=== PATIENT | male | born 1950 | race Caucasian/White ===

== ENCOUNTER 2017-06-19 23:47 | Emergency (ER) | payer MEDICARE ==
[~2017-06-19] VITALS: Ht 170.2 cm; Wt 94.3 kg
[~2017-06-19 23:47] MED LIST: ALBUTEROL2.5 MG/3 M INH; DILTIAZEM HCL120 MG; LANTUS100 UNITS/ SUB-Q; LISINOPRIL5 MG PO; MAXIMUM DAILY1 EACH; METFORMIN HCL500 MG; NOVOLOG100 UNITS/ SUB-Q; PREDNISONE20 MG PO; PROTONIX20 MG PO; PROVENTIL HFA6.7 GM INH; ROBITUSSIN NIG118 ML PO; TESSALON PERLE100 MG PO; VYTORIN 10-401 EACH PO; ZITHROMAX250 MG PO; ZITHROMAX500 MG PO
[2017-06-20] MEDS ORDERED: VICTOZA 3-0.6 MG/0.1 SUB-Q
[2017-06-20] MEDS ORDERED: VICTOZA 2-0.6 MG/0.1 SUB-Q (00:01)
[2017-06-20] MEDS ORDERED: FLAGYL500 MG PO (01:58)
[2017-06-20] MEDS ORDERED: CIPRO500 MG PO (01:58)
== END 2017-06-20 02:30 | disposition home or self-care (01) ==
LOC: ED 23:47
DX: K57.32 Diverticulitis of large intestine without perforation or abscess without bleeding (principal); I10 Essential (primary) hypertension; E11.9 Type 2 diabetes mellitus without complications; Z88.5 Allergy status to narcotic agent; Z79.4 Long term (current) use of insulin; Z79.899 Other long term (current) drug therapy
CPT/HCPCS: 74177; 80053; 81001; 83690; 85025; 96361; 96374; 96375; 99284; J2405; J3010; J7030; Q9967

== ENCOUNTER 2018-05-31 06:34 | Emergency (ER) | payer MEDICARE ==
[~2018-05-31] VITALS: Ht 170.2 cm; Wt 88.5 kg
--- OUTSIDE RECORDS SUMMARY | ~2018-05-31 | XMS | Clinical Summary ---
Demographics + + + | Address | [address] | | | [place] [address] | + + + | Home Phone | | + + + | Preferred Language | Unknown | + + + | Marital Status | | + + + | Yazidi Affiliation | Unknown | + + + | Race | Unknown | + + + | Ethnic Group | Unknown | + + + Author + + + | Author | [facility] | | | and [place] | + + + | Organization | [facility] | | | and [place] | + + + | Address | Unknown | + + + | Phone | Unavailable | + + + Care Team Providers + +------+ + | Care Solid Waste Truck Driver Name | Role | Phone | + +------+ + | Monique Loco | PP | | | PA | | | + +------+ + Allergies + + + + + + | Active Allergy | Reactions | Severity | Noted | Comments | | | | | Date | | + + + + + + | Aspirin | | | 09/29/20 | | | | | | 16 | | + + + + + + | Hydrocodone | | | 09/29/20 | | | | | | 16 | | + + + + + + | Hydromorphone | | | 09/29/20 | | | | | | 16 | | + + + + + + Current Medications + + +-------+---------+------+------+-------+ | Prescription | Sig. | Disp. | Refills | Star | End | Statu | | | | | | t | Date | s | | | | | | Date | | | + + +-------+---------+------+------+-------+ | liraglutide | Inject 1.2 mg under | | | | | Activ | | (VICTOZA) 18 mg/3 mL | the skin Daily. | | | | | e | | injection | | | | | | | + + +-------+---------+------+------+-------+ | dilTIAZem | Take 240 mg by mouth | | | | | Activ | | (CARDIZEM CD) 240 MG | Daily. | | | | | e | | 24 hr capsule | | | | | | | + + +-------+---------+------+------+-------+ | | Take 1 tablet by | | | | | Activ | | ezetimibe-simvastati | mouth nightly. | | | | | e | | n (VYTORIN) 10-40 MG | | | | | | | | per tablet | | | | | | | + + +-------+---------+------+------+-------+ | lisinopril | Take 10 mg by mouth | | | | | Activ | | (PRINIVIL, ZESTRIL) | Daily. | | | | | e | | 10 mg tablet | | | | | | | + + +-------+---------+------+------+-------+ | ibuprofen (ADVIL, | Take 200 mg by mouth | | | | | Activ | | MOTRIN) 200 mg | every 6 hours as | | | | | e | | tablet | needed for Pain. | | | | | | + + +-------+---------+------+------+-------+ Active Problems Not on file Family History + + +------+ + | Medical History | Relation | Name | Comments | + + +------+ + | Cancer | Brother | | | + + +------+ + | Heart disease | Brother | | | + + +------+ + | No Known Problems | Father | | | + + +------+ + | No Known Problems | Mother | | | + + +------+ + + +------+--------+ + | Relation | Name | Status | Comments | + +------+--------+ + | Brother | | | | + +------+--------+ + | Father | | | | + +------+--------+ + | Mother | | | | + +------+--------+ + Social History + +-------+ +--------+------+ | Tobacco Use | Types | Packs/Day | Years | Date | | | | | Used | | + +-------+ +--------+------+ | Never Assessed | | | | | + +-------+ +--------+------+ + + +---------+ + | Alcohol Use | Drinks/We | oz/Week | Comments | | | ek | | | + + +---------+ + | Yes | 2-3 | 1.2 - | | | | Standard | 1.8 | | | | drinks or | | | | | | | | | | equivalen | | | | | t | | | + + +---------+ + + + + | Sex Assigned at | Date Recorded | | | | + + + | Not on file | | + + + Plan of Treatment + + + + + | Health Maintenance | Due Date | Last Done | Comments | + + + + + | Hepatitis C | | | | | Screening | 8 | | | + + + + + | Vaccine: | | | | | Dtap/Tdap/Td (1 - | 7 | | | | Tdap) | | | | + + + + + | Colorectal Cancer | | | | | Screening | 8 | | | | (Colonoscopy) | | | | + + + + + | Vaccine: Zoster (1 | | | | | of 2) | 8 | | | + + + + + | Vaccine: | | | | | Pneumococcal 65+ | 3 | | | | Low/Medium Risk (1 | | | | | of 2 - PCV13) | | | | + + + + + | Vaccine: Influenza | | | | | (#1) | 8 | | | + + + + + Results Not on filefrom Last 3 Months Insurance + +--------+ +--------+ +---------+ | Payer | Benefi | Subscriber | Type | Phone | Address | | | t Plan | ID | | | | | | / | | | | | | | Group | | | | | + +--------+ +--------+ +---------+ | MEDICARE | MEDICA | [id number] | Medica | [phone] | | | | RE | | re | [phone] | | | | PART A | | | | | | | AND B | | | | | + +--------+ +--------+ +---------+ | AARP | AARP | [id number] | Indemn | [phone] | | | | MDCR | | ity | [phone] | | | | SUPPL | | | | | + +--------+ +--------+ +---------+ + +--------+ +--------+ + + | Guarantor Name | Accoun | Relation to | Date | Phone | Billing Address | | | t Type | Patient | of | | | | | | | | | | + +--------+ +--------+ + + | JORDON LEVI | Person | Self [birth year] | Home: | [address] | | | al/Fam | | [phone] | [phone] [place] [address] | | | darling | | [phone] | | + +--------+ +--------+ + +"
--- OUTSIDE RECORDS SUMMARY | ~2018-05-31 | XMS | Clinical Summary ---
Demographics + + + | Address | [address] | | | [place] [address] | + + + | Home Phone | | + + + | Preferred Language | Unknown | + + + | Marital Status | | + + + | Adventism Affiliation | Unknown | + + + | Race | Unknown | + + + | Ethnic Group | Unknown | + + + Author + + + | Author | [facility] | | | and [place] | + + + | Organization | [facility] | | | and [place] | + + + | Address | Unknown | + + + | Phone | Unavailable | + + + Care Team Providers + +------+ + | Care Laser Set Up Operator Name | Role | Phone | + [...] +--------+ +---------+ | MEDICARE | MEDICA | [id number] | Medica | [phone] | | | | RE | | re | [phone] | | | | PART A | | | | | | | AND B | | | | | + +--------+ +--------+ +---------+ | AARP | AARP | [id number] | Indemn | [phone] | | | [phone] | [phone] | [place] [address] | | | darling | | | [phone] | | + +--------+ +--------+ + +"
[~2018-05-31 06:34] MED LIST changes: +CIPRO500 MG PO; +FLAGYL500 MG PO; +VICTOZA 2-0.6 MG/0.1 SUB-Q; +VICTOZA 3-0.6 MG/0.1 SUB-Q
== END 2018-05-31 08:56 | disposition home or self-care (01) ==
LOC: ED 06:34
DX: M17.11 Unilateral primary osteoarthritis, right knee (principal); I10 Essential (primary) hypertension; E11.9 Type 2 diabetes mellitus without complications; Z88.5 Allergy status to narcotic agent; Z79.4 Long term (current) use of insulin; Z79.899 Other long term (current) drug therapy
CPT/HCPCS: 73560; 93971; 99284

== ENCOUNTER 2019-05-20 21:31 | Inpatient (IN) | payer MEDICARE ==
[~2019-05-20] VITALS: Ht 170.2 cm; Wt 95.9 kg
[~2019-05-20 21:31] MED LIST changes: -DILTIAZEM HCL120 MG; +DILTIAZEM HCL120 MG PO; +HUMALOG100 UNITS/ IV; +IBUPROFEN600 MG PO; -MAXIMUM DAILY1 EACH; +MAXIMUM DAILY1 EACH PO; -NOVOLOG100 UNITS/ SUB-Q; -PROTONIX20 MG PO; +PROTONIX40 MG PO; +SIMVASTATIN80 MG PO; +TRAMADOL HCL50 MG PO; +ZETIA10 MG PO
[2019-05-20] MEDS ORDERED: COZAAR25 MG PO (21:44)
--- NOTE | 2019-05-21 01:21 | NUR ---
PT ARRIVES TO MS FLOOR VIA STRETCHER. ABLE TO AMBULATE TO BED. NGT TO LOW INT SUCTION, GREEN DRAINAGE NOTED. PT RATES PAIN 6/10 UPON ARRIVAL IN MID ABD INCREASES TO 10/10, SHARP "SPASMS". PRN FENTANYL IV ADMINISTERED. IVF INFUSING WNL ORDERED. ASSESSMENT COMPLETE. ABD FIRM, DISTENDED, BOWEL TONES ACTIVE X 4. PT C/O SOME NAUSEA, DENIES NEED FOR ADDITIONAL MEDICATIONS AT THIS TIME. CALL LIGHT IN REACH, ORIENTATION TO ROOM PROVIDED. LIGHTS OFF IN ROOM.
--- NOTE | 2019-05-21 01:56 | NUR ---
CALL LIGHT ANSWERED, PT VOMMITING, 800 MLS EMESIS, GREEN/BROWN IN COLOR. NGT IN PLACE GREEN DRAINAGE. PRN NAUSEA MEDICATION ADMINISTERED. IVF INFUSING WNL. PT RATES PAIN FROM 8 TO 10 IN ABDOMEN, PRN PAIN MEDICATION ADMINISTERED. URINAL EMPTIED. WASH CLOTH AND MOUTH SWABS PROVIDED. CALL LIGHT IN REACH.
--- NOTE | 2019-05-21 03:09 | NUR ---
CALL LIGHT ANSWERED. PT C/O 8-07/11 PAIN IN ABDOMEN, WINCING IN PAIN. PRN IV PAIN MEDICATION ADMINISTERED. IVF INFUSING WNL ORDERED. CALL LIGHT IN REACH. PT STATES HE WAS ABLE TO GET A LITTLE SLEEP.
--- NOTE | 2019-05-21 05:20 | NUR ---
CALL LIGHT ANSWERED. PRN PAIN MEDICATION ADMINISTERED FOR 8/10 PAIN IN ABD. ASSESSMENT COMPLETE BOWEL TONES HYPOACTIVE X 4, ABD FIRM, DISTENDED, NON-TENDER W PALPATION. PT STATES "A LITTLE NAUSEA". NGT CANNISTER CHANGED, 750 MLS BROWN DRAINAGE IN CANNISTER. CALL LIGHT IN REACH. NO REQUESTS AT THIS TIME.
--- NOTE | 2019-05-21 06:11 | NUR ---
CALL LIGHT ANSWERED. NGT DRAINAGE ON BED, LINENS CHANGED. NGT DRAINING BROWN DRAINAGE. IVF INFUSING WNL ORDERED. PT STATES "I'M OKAY FOR PAIN, DON'T NEED ANYTHING RIGHT NOW". CALL LIGHT IN REACH. NO REQUESTS AT THIS TIME.
--- NOTE | 2019-05-21 06:12 | NUR ---
NGT TO LOW INT WALL SUCTION. 750 MLS OUT THIS SHIFT. 800 MLS EMESIS. PRN NAUSEA AND PAIN MEDICATIONS IV. IVF INFUSING WNL THROUGHOUT SHIFT. USING CALL LIGHT APPROPRIATELY. VOIDING QS IN URINAL.
--- NOTE | 2019-05-21 07:59 | NUR ---
PT AWAKE AND ALERT ON REPORT. PT MOANS IN PAIN, STATES PAIN 10/10. NG TUBE INTACT AND PATENT TO WALL SUCTION. NG VENT FLUSHED WITH AIR FOR PATENCY. PT MEDICATED FOR PAIN, SEE EMAR. PT RESTING IN BED WITH CALL LIGHT IN REACH.
--- NOTE | 2019-05-21 08:04 | NUR ---
PT STATES T2DM WOULD LIKE CBG.
--- NOTE | 2019-05-21 09:29 | NUR ---
PT BLOOD SUGAR 196.
--- NOTE | 2019-05-21 12:00 | NUR ---
PT RESTING IN BED, ALERT AND ORIENTED. ROOM QUIET, NO TV. PT HAS NG TUBE IN, APPEARS TO BE WORKING BY AMOUNT OF FLUID IN NG BOWL ON WALL. I WILL LET HIM REST. EXTENDED A BLESSING, WILL FOLLOW NEEDED
--- NOTE | 2019-05-21 13:28 | NUR ---
EDUCATION PROVIDED TO PT REGARDING PEDIATRIC ONCOLOGIST USE. PT DEMONSTRATES USE OF PEDIATRIC ONCOLOGIST APPROP. CALL LIGHT AND PEDIATRIC ONCOLOGIST WITHIN REACH OF PT. NO NEEDS AT THIS TIME.
--- NOTE | 2019-05-21 14:58 | HP ---
[facility] [address], [place] [address] Signed ADMISSION DATE: 05/20/2019 REASON FOR ADMISSION: Recurrent small bowel obstruction. HISTORY OF PRESENT ILLNESS: This 68-year-old white man who is well known to me from the past. I last saw him in July of 2018, at which time, he underwent repair of an incarcerated incisional hernia without obstruction. Implantation of Prolene mesh in an underlay technique was undertaken at that time. The patient has had chronic recurrent small bowel obstructions at least 5 in total over the past several years. Yesterday at approximately 8 p.m., he began having rather severe right to mid abdominal pain and abdominal distention without associated vomiting. The pain came in paroxysms and was highly suggestive of prior bowel obstruction episodes he has had. He presented to the emergency room where he was evaluated by Dr. Ferguson. A CT scan was obtained, which confirmed small bowel obstruction, marked dilation of the stomach and proximal bowel. Although, I was not on-call, I did agree to accept him at his request on my service as I am familiar with his case generally over the past number of years. PAST MEDICAL HISTORY: Does include: 1. Diabetes mellitus, insulin requiring. 2. History of incisional hernia repair at umbilicus. 3. History of PSVT. 4. History of diverticular disease. 5. Hypertension. PAST SURGICAL HISTORY: Includes knee replacement, foot surgery, and incisional hernia repair as described. HOME MEDICATIONS: Include: 1. Ibuprofen episodically. 2. Tramadol as needed. Other medications include: 1. NovoLog insulin 100 units subcu daily. Electronically Signed By: MARJORIE DORSEY MD 05/21/19 1458 PATIENT NAME: JORDON JACOBSON HISTORY AND PHYSICAL DATE OF : 46 REPORT #: [id number] PHYSICIAN: MARJORIE DORSEY MD PCP: MARIAJOSE WINCHESTER PAC REPORT IS CONFIDENTIAL AND NOT TO BE RELEASED WITHOUT AUTHORIZATION [facility] [address], [place] [address] Signed 2. Lantus 50 units subcu daily. 3. Zetia 10 mg daily. 4. Simvastatin 40 mg daily. 5. Protonix 20 mg daily. 6. Diltiazem uncertain dose currently. 7. Victoza. 8. Losartan. 9. Multivitamin. REVIEW OF SYSTEMS: He continues to have some right-sided abdominal pain. He has had no further nausea, though he did have retching and nausea even after the nasogastric tube was placed. He denies any chest pain. He does admit that he was eating a fair amount of raw vegetables antedating his episode of abdominal pain and obstruction yesterday. This has been a common theme for his obstructive process in the past. SOCIAL HISTORY: He is a retired [employer] nurse. His also was a nurse. PHYSICAL EXAMINATION: GENERAL: Pleasant white man, who looks to be in only mild discomfort. Does not look systemically toxic. HEENT: Mucous membranes are reasonably moist. Trachea is midline. CHEST: Clear. HEART: Regular. ABDOMEN: Distended. There is mild diffuse tenderness, but no focal tenderness. There is no sign of recurrent incisional hernia. EXTREMITIES: Show no clubbing, cyanosis, or edema. LABORATORY DATA: At admission showed a white count of 10.8 this morning elevated to 11.1, hematocrit originally 51.6, now 47.9; and platelets 197,000, previously 228,000. Electrolytes notable for potassium now 5.2, previously 3.8; bicarb of 22, creatinine currently 1.24, previously 1.44; and glucose 135 last night, 193 now. Calcium is 8.6, magnesium 1.9. Liver enzymes last night normal. Lipase normal at 47. I have reviewed his imaging studies including a chest x-ray, which showed no acute infiltrative process and abdominal CT scan showing obstructive bowel including the stomach. An exophytic right renal cyst was noted. The transition point was noted in the right lower abdomen. The appendix was considered normal. There are multiple diverticula of the colon. No adenopathy. No bony lesions. ASSESSMENT: Electronically Signed By: MARJORIE DORSEY MD 05/21/19 1458 PATIENT NAME: JORDON JACOBSON HISTORY AND PHYSICAL DATE OF : 46 REPORT #: [id number] PHYSICIAN: MARJORIE DORSEY MD PCP: MARIAJOSE WINCHESTER PAC REPORT IS CONFIDENTIAL AND NOT TO BE RELEASED WITHOUT AUTHORIZATION [address] [address] Signed The patient has had recurrent small bowel obstruction, this will be related to recent intake of raw vegetables as has been the case in the past. A nasogastric tube has been placed and IV fluids are running. Continued observation is warranted. For pain medication, he does have allergies to numerous medications. IV Tylenol may be of benefit in addition to IV fentanyl, which he is currently getting. Operative intervention may yet be required, but he warrants some time in observation to allow for spontaneous clearance of possible. We will monitor his blood sugars and treat based on sliding scale of insulin. We will repeat his lab studies later in the day. Marjorie Dorsey MD JM/MODL /[id number] cc: JEFF Mota MD Copies: ADELINA FERGUSON MD ~ Electronically Signed By: MARJORIE DORSEY MD 05/21/19 1458 PATIENT NAME: JORDON JACOBSON HISTORY AND PHYSICAL DATE OF : 46 REPORT #: [id number] PHYSICIAN: MARJORIE DORSEY MD PCP: MARIAJOSE WINCHESTER PAC REPORT IS CONFIDENTIAL AND NOT TO BE RELEASED WITHOUT AUTHORIZATION
--- NOTE | 2019-05-21 15:14 | NUR ---
DR. DORSEY IN TO SEE PT. HOTEL HOUSEMAN DOSE CHANGED FROM 2MCG TO 3MCG WITH 6 MINUTE LOCKOUT. PT ALSO MEDICATED FOR BREAKTHROUGH PAIN, SEE EMAR. PT RESTING IN BED WITH EVEN AND UNLABORED RESP, SATS 93% ON RA VIA CONT PULSE OXIMETER. CALL LIGHT WITHIN REACH.
--- NOTE | 2019-05-21 15:34 | NUR ---
MED REC COMPLETE
--- NOTE | 2019-05-21 18:18 | NUR ---
A&OX3. RA. NG TO SUCTION. ICE AND SIPS FOR COMFORT. D5LR@85ML/HR. DECLINED SCD'S. BS CHECKS AND S/S. RADIOLOGIST CHIEF OF BREAST IMAGING FENTANYL 3MCG/6MIN. URINAL AT BEDSIDE. HYPO BTX4 QUADRANT. CALLS APPROP.
--- NOTE | 2019-05-21 18:22 | NUR ---
PT DECLINED SCD'S THIS SHIFT.
--- NOTE | 2019-05-21 19:26 | NUR ---
CLEARED 84MCG FROM FENTANYL BEAD WORKER SEWING PUMP AT THIS TIME.
--- NOTE | 2019-05-21 21:58 | NUR ---
PATIENT JUST STOOD AT THE BEDSIDE TO VOID IN URINAL WITHOUT DIFFICULTY AND THEN DECIDED TO GO TO BED. PATIENT HAS NO NEEDS AT THIS TIME. 3/10 ABD PAIN WHICH PATIENT IS COMFORTABLE WITH EVEN THOUGH THE POULTRY SCALDER GIVES HIM A HEADACHE. NIKY=107 SO NO INSULIN. PATIENT HG PUTTING OUT GREEN DRAINAGE TO ILWS. PATIENT GOING TO TRY TO GO TO SLEEP.
--- NOTE | 2019-05-21 23:28 | NUR ---
PATIENT CALLED, HIS CPOX MACHINE WAS ALARMING AND THE ALARM WAS REST AND SAT IS FINE IN THE 90'S. PATIENT GOING TO TRY AND GO BACK TO SLEEP.
--- NOTE | 2019-05-22 01:01 | NUR ---
NEW IV BAG HUNG. PATIENT HAVING 5/10 ABD PAIN AND WAS GIVEN 30MG IV TORADOL IV.
--- NOTE | 2019-05-22 03:06 | NUR ---
PATIENT RESTING QUIETLY, EYES CLOSED, RESPIRATIONS REGULAR AND EVEN, NO SIGNS OF DISTRESS, CALL LIGHT IS IN REACH.
--- NOTE | 2019-05-22 05:56 | NUR ---
PATIENT DISONNECTED FROM HIS IV SO HE COULD GO IN TO THE BATHROOM. PATIENT VOIDED IN THE TOILET AND HAD A BM. 250ML'S NG DRAINAGE OF A GREEN COLOR OUT THIS SHIFT. PATIENT SAID HE SLEPT WELL AND HAS NOT BEEN USING HIS CYLINDER BLOCK MECHANIC PUMP. HE DID HAVE 30MG IV TORADOL EARLIER IN THE SHIFT FOR ABD PAIN OF 5/10 WHICH DECREASED PAIN TO A 3 ANDND HIS TOLERANCE IS A 6. NG TO ILWS AND IV IS PATENT, RUNNING, AND WNL.
--- NOTE | 2019-05-22 07:35 | NUR ---
PT SITTING IN BEDSIDE CHAIR AWAKE AND ALERT FOR REPORT. VERBAL REPORT RECIEVED FROM CITLALI CARTY. 0800: PT TAKEN TO XRAY.
--- NOTE | 2019-05-22 08:01 | NUR ---
OFF UNIT TO DI AT THIS TIME.
--- NOTE | 2019-05-22 08:07 | NUR ---
PATIENT BACK FROM XRAY, DR. DORSEY IN TO SEE PATIENT. PLAN TO PULL NG LATER TODAY AND TRY CLEAR LIQUIDS.
--- NOTE | 2019-05-22 08:59 | NUR ---
PT BACK FROM XRAY, CONT TO REST IN BEDSIDE CHAIR. PER ORDERS, NG TUBE REMOVED. PT TOLERATES WELL WITH NO C/O NAUSEA. PT PERFORMS ORAL HYGIENE PER REQUEST. PT DENIES ANY PAIN RATES 0/10. PT REQUESTS TO HAVE FLOWER MAKER REMOVED AND TO SHOWER.
--- NOTE | 2019-05-22 09:09 | NUR ---
PATIENT SITTING UP IN CHAIR. RN IN ROOM. VITAL SIGNS AND I&O DONE. SETS UP BATHROOM FOR SHOWER. IV WRAPPED. CALL LIGHT WITHIN REACH. NO OTHER NEEDS AT THIS TIME
--- NOTE | 2019-05-22 09:18 | NUR ---
PATIENT RESTING IN BED. VITAL SIGNS AND I&O DONE. CALL LIGHT WITHIN REACH. NO OTHER NEEDS AT THIS TIME
--- NOTE | 2019-05-22 11:28 | NUR ---
PT SITTING IN BEDSIDE CHAIR, DENIES ANY NEEDS AT THIS TIME. PT FAMILY IN RM AT BEDSIDE.
--- NOTE | 2019-05-22 11:34 | NUR ---
PT SITTING UP ON EDGE OF BED. PT REPORTS PAIN IS TOLERABLE AND WELL CONTROLLED TODAY. PT TOLERATING NG OUT WELL; CONTINUES TO DENY N/V. STOMACH IS SOFT AND NON TENDER.
--- NOTE | 2019-05-22 13:16 | NUR ---
PATIENT SITTING UP IN CHAIR. VITAL SIGNS AND I&O DONE. CALL LIGHT WITHIN REACH. NO OTHER NEEDS AT THIS TIME
--- NOTE | 2019-05-22 14:11 | NUR ---
PT SITTING IN CHAIR, NG TUBE OUTL PT LOOKS MUCH BETTER. SHE SEEMS TO BE THE TYPE OF PERSON THAT JUST TAKES LIFE IT COMES. KNOWS NG HAD A PURPOSE, HE IS STILL ON CLEAR LIQUIDS AND SEEMS TO BE DEALING APPROPRIATELY. EXTENDED A BLESSING, WILL FOLLOW NEEDED
--- NOTE | 2019-05-22 14:39 | NUR ---
PT SITTING UP IN CHAIR, RESP EVEN AND NON LABORED. PT DENIES PAIN AND NAUSEA AT THIS TIME. NO NEEDS. CALL LIGHT WITHIN REACH.
--- NOTE | 2019-05-22 14:56 | NUR ---
PT RESTING IN BEDSIDE CHAIR AWAKE AND ALERT. PT DENIES PAIN OR NAUSEA AT THIS TIME AND TOLERATES CLEAR LIQUIDS WELL.
--- NOTE | 2019-05-22 16:27 | NUR ---
PATIENT AMBULATING IN THE HALLWAY
--- NOTE | 2019-05-22 16:30 | NUR ---
PT AMBULATES HALLWAY WITH STEADY GAIT. DENIES ANY NAUSEA OR PAIN WITH MOVEMENT. PT BACK IN FOR DINNER OF FULL LIQUIDS.
--- NOTE | 2019-05-22 17:01 | NUR ---
PATIENT SITTING UP IN CHAIR TAKING HIS DINNER. VITAL SIGNS AND I&O DONE. CALL LIGHT WITHIN REACH. NO OTHER NEEDS AT THIS TIME
--- NOTE | 2019-05-22 18:00 | NUR ---
6mcg cleared from surgery aid prior to d/c.
--- NOTE | 2019-05-22 18:19 | NUR ---
PT A&OX3. ON RA. NG AND PETROLEUM REFINING EQUIPMENT OPERATOR REMOVED TODAY. PT DENIES PAIN AND NAUSEA. PT TOLERATING 60G CARB DIET. WALKING HALLS INDEPENDENT. Q/S URINE AND STOOL. PT CALLS APPROP.
--- NOTE | 2019-05-22 19:52 | NUR ---
PATIENT SITTING UP IN BEDSIDE ARMCHAIR AND IS PAIN FREE AND HAS NO NEEDS AT THIS TIME.
--- NOTE | 2019-05-22 21:11 | NUR ---
PATIENT GETTING UP TO USE THE BATHROOM. EVENING HGGS=623, NO INSULIN GIVEN. PATIENT HAVING NO PAIN AND WILL BE GOING BACK TO BED WHEN DONE IN THE RESTROOM. PATIENT HAD NO CURRENT NEEDS.
--- NOTE | 2019-05-22 21:52 | NUR ---
ROUNDED CHAREG. PATIENT IS RESTING IN BED. PATIENT DENIES ANY COMMENTS, QUESTIONS, OR CONCERNS. NO NEEDS NOTED. CALL LIGHT IN REACH.
--- NOTE | 2019-05-22 23:32 | NUR ---
PATIENT RESTING QUIETLY ON HIS LEFT SIDE, RESPIRATIONS REGULAR AND EVEN AND EYES CLOSED WITH CALL LIGHT IN REACH.
--- NOTE | 2019-05-23 01:09 | NUR ---
PATIENT ON HIS LEFT SIDE RESTING QUIETLY, RESPIRATIONS REGULAR AND EVEN AT 16. EYES CLOSED, AND CALL LIGHT IN REACH.
--- NOTE | 2019-05-23 03:22 | NUR ---
PATIENT IS RESTING ON HIS LEFT SIDE, EYES CLOSED, HAS HAD NO C/O PAIN AND HIS CALL LIGHT IS IN REACH.
--- NOTE | 2019-05-23 05:01 | NUR ---
Patient rested on and off through the night. expecting to go home today. patient said he has chronic back pain and the bed was really hurting his back, 03/11 and was given 2 po tylenol. patient up walking at this time and doing well drinking a cup of coffee.
--- NOTE | 2019-05-23 07:06 | NUR ---
PT RESTING SUPINE IN BED, EYES CLOSED NAD RESPIRATIONS EVEN AND UNLABORED. PT APPEARS TO BE SLEEPING COMFORTABLY. CALL LIGHT AND H2O IN REACH. REPORT RECEIVED FROM CITLALI CARTY.
--- NOTE | 2019-05-23 08:32 | NUR ---
PT UP AMBULATING IN ROOM WITH STEADY GAIT, ALERT AND ORIENTED. AM CBG 161, 1 UNIT SS INSULIN ADMINISTERED -SEE EMAR. CALL LIGHT AND H2O IN REACH. ASSESSMENT COMPLETED. PT EXPRESSED READINESS FOR DISCHARGE. STATES "[place] BEEN PASSING GAS ALL NIGHT". NO FURTHER NEEDS/CONCERNS VOICED.
--- NOTE | 2019-05-23 09:10 | NUR ---
PT UP AMBULATING IN HALLS WITH STEADY GAIT, REPORT FEELING LIKE HIS BREAKFAAST IS JUST SITTING ON HIS STOMACH, PER ASTROPHYSICS TEACHER IS AWARE AND DISCUSSED FURTHER OBSERVATION HER IN HOSPITAL TODAY WITH PATIENT. PT DENIES SOB, NAUSEA OR PAIN.
--- NOTE | 2019-05-23 11:10 | NUR ---
PT UP AMBULATING IN GALVAN, PT REQUESTED AND RECEIVED BLACK TEA. NO FURTHER NEEDS/CONCERNS VOICED AND DENIES ANY CHANGES TO SYMPTOMS STATES "I STILL JUST FEEL FULL".
--- NOTE | 2019-05-23 13:10 | NUR ---
PT SITTING UP IN BED READING MAGAZINE, CALL LIGHT AND H2O IN REACH. PT ASSESSMENT COMPLETED. PT STATES "IT STILL FEELS LIKE IT'S ALL JUST SITTING RIGHT HERE" PT POINTS TO LOWER BILAT ABDOMEN. PT DENIES NAUSEA AND STATES "DR DORSEY MAY END UP DECIDING TO DO A FOLLOW THROUGH STUDY BUT I'M HOPING IT JUST PASSES ON IT'S OWN". PT DENIES NEED FOR PAIN MEDICATION OR OTHER NEEDS/CONCERNS AT THIS TIME.
--- NOTE | 2019-05-23 14:14 | NUR ---
PT SITTING ON COUCH READING. HE IS ALERT, ORIENTED AND TODAY EXPRESSED SOME DISAPPOINTMENT THAT HIS CONDITION IS NOT IMPROVING AT A PACE HE HAD HOPED. PREVIOUSLY HE HAD BEEN UPBEAT AND SEEMED TO BE A "GO WITH THE FLOW" TYPE OF PERSON. HE KIND OF CAUGHT HIMSELF AND SAID HE WILL GET BETTER. DECLINED OTHER READING MATERIAL. EXTENDED A BLESSING, WILL FOLLOW NEEDED
--- NOTE | 2019-05-23 15:00 | NUR ---
PT SITTING ON COUCH VISITING WITH FAMILY, PT APPEARS TO BE IN NO ACUTE DISTRESS. NO NEEDS/CONCERNS VOICED. CALL LIGHT AND H2O IN REACH.
--- NOTE | 2019-05-23 15:20 | NUR ---
PATIENT VISITOR JUST LEFT. I ASKED HIM HOW MANY LAPS HAS HE DONE SO FAR TODAY HE SAID 42. ALSO RFUSED SHOWER TODAY BECAUSE HE TOOK ONE YESTERDAY.
--- NOTE | 2019-05-23 16:08 | NUR ---
PT REMAINS ALERT AND ORIENTED, TOLERATING 60GM CONSISTANT CARB DIET, WITH NO NAUSEA BUT PT DOES REPORT THAT HE FEELS BLOATED TO LOWER BILAT ABDOMEN. PT'S ABDOMEN DOES APPEAR DISTENDED. PT REPORTS HAVING SMALL BM TODAY BUT LITTLE RELEIF FROM DISTENSION. PT DENIES NAUSEA AND STATES HE HAS BEEN PASSING SOME GAS THROUGHOUT THE DAY. BT'S ARE ACTIVE IN ALL QUADRANTS.
--- NOTE | 2019-05-23 16:50 | NUR ---
REPORT RECIEVED FROM SHAWANDA GODWIN. PT RESTING IN HIS CHAIR STATING HE HAS SOME "SLIGHT PAIN" WHICH HE STATES IS ACCEPTABLE. PT DENIES ANY NAUSEA AND HIS BOWEL SOUNDS ARE ACTIVE. PT ORDERING DINNER AT THIS TIME.
--- NOTE | 2019-05-23 17:25 | NUR ---
PT VISITING AT THIS TIME AND DENIES ANY NEW PROBLEMS.
--- NOTE | 2019-05-23 19:46 | NUR ---
PATIENT SITTING UP IN BEDSIDE ARM CHAIR, NO NEEDS OR CONCERNS AT THIS TIME. CALL LIGHT IN REACH.
--- NOTE | 2019-05-23 19:54 | NUR ---
CHARGE NURSE ROUNDING. pt SITTING IN CHAIR CHATTING WITH RT. NO REQUESTS OR COMPLAINTS AT THIS TIME. CALL LIGHT WITHIN REACH. WHITEBOARD UPDATED.
--- NOTE | 2019-05-23 20:08 | NUR ---
PATIENT CURRENTLY TALKING WITH RT AND REMAINS IN ARMCHAIR. NEW WATER GIVEN.
--- NOTE | 2019-05-23 22:01 | NUR ---
PATIENT UP WALKING WITH C/O CHRONIC BACK PAIN, GIVEN 650MG PO TYLENOL AT PATIENT REQUEST FOR 04/10 PAIN. PATIENT GOING TO SIT UP IN THE CHAIR AWHILE. CALL LIGHT IN REACH.
--- NOTE | 2019-05-24 00:12 | NUR ---
PATIENT RESTING QUIETLY, EYES CLOSED, HAS A SLIGHT COUGH AT TIMES, CALL LIGHT IN REACH.
--- NOTE | 2019-05-24 02:13 | NUR ---
PATIENT RESTING QUIETLY ON THE COUCH. HE SAID EARLIER THE BED WAS TOO UNCOMFORTABLE. RESPIRATIONS REGULAR AND EVEN AND SNORING SLIGHTLY. CALL LIGHT IN REACH AND EYES CLOSED.
--- NOTE | 2019-05-24 03:59 | NUR ---
PATIENT CONTINUES TO REST QUIETLY ON HIS RIGHT SIDE ON THE SOFA, EYES CLOSED RESPIRATIONS REGULAR AND EVEN. CALL LIGHT IN REACH.
--- NOTE | 2019-05-24 05:24 | NUR ---
PATIENT HAD AN OK NIGHT IV FLUSHES WELL, PATIENT CURRENTLY TAKING A SHOWER AFTER GETTING UP AND WALKING FOR A BIT AND THEN SLEEPING ON THE COUCH IT WAS MORE COMFORTABLE WITH THE BED. PATIENT HAD SOME BACK PAIN WHICH WAS RESOLVED WITH SOME TYLENOL. PATIENT TO GO DOWN TO X-RAY THIS AM FOR ABD X-RAY. HOPEFULLY HOME TODAY AFTER THAT.
--- NOTE | 2019-05-24 07:21 | NUR ---
0711: BEDSIDE REPORT RECIEVED FROM CARLOZ GODWIN. PT RESTING IN HIS CHAIR AND HE STATES THAT HE HAD A MED SIZED FORMED STOOL THIS AM. HE STATES THAT HIS ABD IS SLIGHTLY TENDER TO THE TOUCH AND NO PAIN WHEN NOT TOUCHING HIS ABD WHICH IS BETTER THAN YESTERDAY. CALL CONROY WITHIN REACH AND THE PT DENIES ANY NEW PROBLEMS.
--- NOTE | 2019-05-24 07:44 | NUR ---
PT STATES HIS ABD CONTINUES TO FEEL BETTER THAN IT HAS. HE ORDERED A CLEAR LIQUID DIET BY HIS CHOICE HE STATES HE DOES NOT WANT TO PUSH THINGS.
--- NOTE | 2019-05-24 08:08 | NUR ---
PATIENT AMBUTALING IN THE HALLWAY
--- NOTE | 2019-05-24 09:08 | NUR ---
PATIENT SITTING UP IN CHAIR. VITAL SIGNS AND I&O DONE. CALL LIGHT WITHIN REACH. NO OTHER NEEDS AT THIS TIME
--- NOTE | 2019-05-24 10:51 | NUR ---
Pt has been ambulating in the halls and is now resting in his chair. He denies any new problems at this time.
--- NOTE | 2019-05-24 12:00 | NUR ---
PATIENT SITTING UP IN CHAIR. AND RN IN ROOM. FINAL VITAL SIGNS WERE OBTAINED PRIOR TO DISCHARGE FROM THE UNIT
--- NOTE | 2019-05-24 17:19 | DS ---
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 I last saw him in July 2018, at which time, he underwent repair of an incarcerated incisional hernia without associated obstruction. Implantation of Prolene mesh was undertaken in an underlay technique. The patient has had chronic recurrent small bowel obstructions over the past several years, 5 total. Indeed, elsewhere. He underwent a PillCam evaluation to assess for intraluminal obstructing lesion, which was negative. The day prior to current admission, at approximately 8 p.m., he began having rather severe right and mid abdominal pain and distention associated with nausea, but without vomiting. He presents to the emergency room as his pain is rather severe and a CT scan was obtained confirming small-bowel obstruction with marked dilation of the stomach and proximal bowel. Although, I was not on-call, I did agree to accept him as a patient at his request and he is admitted for further evaluation and care. PAST MEDICAL HISTORY: Includes diabetes mellitus (insulin requiring), history of incisional hernia with repaired umbilicus, history of PSVT, history of diverticular disease, and hypertension. He also has had knee replacement and foot surgery in the past. MEDICATIONS: His only medications include tramadol, ibuprofen, NovoLog insulin, Lantus, Zetia, simvastatin, Protonix, diltiazem, Victoza, losartan, and a multivitamin. PERTINENT PHYSICAL EXAMINATION: GENERAL: Pleasant white man, who looks to be in mild discomfort, did not look systemically toxic. HEENT: Mucous membranes are moist. Trachea midline. CHEST: Clear. HEART: Regular. ABDOMEN: Distended. There is mild diffuse tenderness. No focal tenderness. No sign of ascites or recurrent incisional hernia. There is no sign of clubbing, cyanosis, or edema. LABORATORY DATA: CT scan was reviewed in detail showing no sign of incisional hernia nor sign of internal Electronically Signed By: MARJORIE DORSEY MD 05/24/19 1719 PATIENT NAME: JORDON JACOBSON DISCHARGE SUMMARY DATE OF : 46 REPORT #: [id number] PHYSICIAN: MARJORIE DORSEY MD PCP: MARIAJOSE WINCHESTER PAC REPORT IS CONFIDENTIAL AND NOT TO BE RELEASED WITHOUT AUTHORIZATION [facility] [address], [place] [address] Signed hernia that could be told. His white count was 10.8, subsequently 11.1 within 12 hours, hematocrit originally 51, subsequently 47 with hydration. HOSPITAL COURSE: A nasogastric tube was placed, which drained copious amounts of succus entericus. This did improve his symptoms. He was treated with IV Tylenol, IV Toradol, occasions of fentanyl (allergic to essentially all other opiates intravenously available). Serial abdominal x-rays were undertaken showing initially air-fluid levels and subsequently improvement of his appearance. He began having bowel movements, less abdominal discomfort, and less distention. His nasogastric tube was removed and he was begun on a clear liquid diet and had progression to a mechanical soft diet, which he tolerated well. By day of discharge, he is ambulating well, has bowel movements. Followup KUB shows a fair amount of stool within the colon. No sign of a bowel obstruction proper. On review of his overall situation, it appears he had a fair amount of raw vegetables and fruits that he was eating antecedent to his episode of obstruction. This has been a common thing for him in the past. We discussed the necessity that to eat slowly and above all, avoid excessive fibrous food boluses when able. FOLLOWUP PLAN: He will return as needed. No scheduled appointment will be anticipated. DISCHARGE MEDICATIONS: His discharge medications will be unchanged from his prior use, which will include pantoprazole 40 mg p.o. daily, Humalog insulin intravenously on sliding scale, Lantus 65 units subcutaneous at bedtime, diltiazem 120 mg p.o. daily, multivitamin with calcium 1 p.o. daily, Victoza 1.8 mg subcutaneous daily, Zetia 10 mg p.o. daily, simvastatin 40 mg at bedtime, and losartan 25 mg p.o. daily. DISCHARGE DIAGNOSES: 1. Recurrent small bowel obstruction with spontaneous resolution with conservative measures, nasogastric tube decompression, and IV fluids. 2. Diabetes mellitus. 3. Hypertension. 4. History of incisional hernia repair with mesh. 5. Adverse drug reaction to morphine, hydrocodone, oxycodone, and hydromorphone. Electronically Signed By: MARJORIE DORSEY MD 05/24/19 0429 PATIENT NAME: JORDON JACOBSON DISCHARGE SUMMARY DATE OF : 46 REPORT #: [id number] PHYSICIAN: MARJORIE DORSEY MD PCP: MARIAJOSE WINCHESTER PAC REPORT IS CONFIDENTIAL AND NOT TO BE RELEASED WITHOUT AUTHORIZATION [address] [address] Signed Marjorie Dorsey MD JM/MODL /[id number] cc: JEFF Henriquez Copies: ELVER CORRIGAN ~ Electronically Signed By: MARJORIE DORSEY MD 05/24/19 1719 PATIENT NAME: JORDON JACOBSON DISCHARGE SUMMARY DATE OF : 46 REPORT #: [id number] PHYSICIAN: MARJORIE DORSEY MD PCP: MARIAJOSE WINCHESTER PAC REPORT IS CONFIDENTIAL AND NOT TO BE RELEASED WITHOUT AUTHORIZATION
== END 2019-05-24 12:05 | disposition home or self-care (01) | DRG 390 ==
LOC: ED 21:31 → MS 21:33
PROVIDERS: ADMIT Surgery
DX: K56.699 Other intestinal obstruction unspecified as to partial versus complete obstruction (principal); E11.9 Type 2 diabetes mellitus without complications; I10 Essential (primary) hypertension; Z79.891 Long term (current) use of opiate analgesic; Z79.899 Other long term (current) drug therapy; Z79.1 Long term (current) use of non-steroidal anti-inflammatories (NSAID); Z79.4 Long term (current) use of insulin; Z88.5 Allergy status to narcotic agent; Z88.8 Allergy status to other drugs, medicaments and biological substances
CPT/HCPCS: 36415; 71045; 74018; 74177; 80048; 80053; 81001; 83690; 83735; 85025; 94760; 94762; 99285-25; J1815; J1885; J2405; J3010; J3480; J7030; J7040; J7120; J7121; Q9967

== ENCOUNTER 2021-01-11 19:36 | Inpatient (IN) | payer MEDICARE ==
[~2021-01-11] VITALS: Ht 170.2 cm; Wt 95.2 kg
[~2021-01-11 19:36] MED LIST changes: +CARTIA XT120 MG PO; +COZAAR25 MG PO; +HUMALOG100 UNIT/2 SUB-Q; +SIMVASTATIN40 MG PO; +TRULICITY1.5 MG/0.5 SUB-Q
--- NOTE | 2021-01-11 23:05 | NUR ---
PT ADMITTED TO ROOM 122 FROM ED. ALERT, ORIENTATED. HISTORY OF MULT SBO'S. 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 RA, SELF TRANSFERED FROM STRETCHER TO BED. REQUESTED AN NG TUBE, DESPITE DENYING ONE WHILE IN THE ED. STATES THIS ONE FEELS "DIFFERENT" THAN THE ONES BEFORE. EXTREMELY PAINFUL.
--- NOTE | 2021-01-11 23:20 | NUR ---
PT WITH INCREASED ABD PAIN. REPORTS BEING SENSITIVE TO OPIATES. DR. RODRIGUEZ CALLED FOR ADDITIONAL PAIN CONTROL. NEW TELEPHONE ORDERS RECEIVED. VERIFIED WITH READ BACK METHOD.
--- NOTE | 2021-01-12 00:47 | NUR ---
14 F NGT PLACED IN RIGHT NARE WITHOUT DIFFICULTY. PT ZEN WELL. PLACEMENT VERIFIED WITH GASTRIC PH TEST LESS THAN 5. IMMEDIATE RETURN OF COPIOUS AMOUNTS OF BROWN DRAINAGE. NGT TO LIWS ORDERED. PT WITH ABD PAIN 10/10. PRN MEDS ADMINISTERED FOR PAIN ORDERED. PT REPORTS RELIEF. PT REPORTS NAUSEA IMPROVED WITH NGT PLACEMENT. ADMISSION ASSESSMENT COMPLETE. IVF INFUSING. CPOX IN PLACE. 2L/NC PLACED DUE TO GENNARO AND BEING UNABLE TO WEAR CPAP. PT ORIENTED TO ROOM AND NURSE CALL LIGHT. DENIES QUESTIONS OR CONCERNS. CALL LIGHT IN REACH.
--- NOTE | 2021-01-12 01:47 | NUR ---
PT RESTING IN BED WITH EYES CLOSED, NAD. HOB ELEVATED. SpO2 96% ON 2L/NC. HR 60'S.
--- NOTE | 2021-01-12 02:46 | NUR ---
PRN ADMINISTERED FOR ABD PAIN AND NAUSEA. VS AND I&O COMPLETE. NGT WITH 500 ML GREEN/BROWN DRAINAGE. NO FURTHER NEEDS AT THIS TIME. CALL LIGHT IN REACH.
--- NOTE | 2021-01-12 04:46 | NUR ---
PT SITTING ON SIDE OF BED VOMITING DESPITE PATENT NGT. PT C/O INCREASED NAUSEA WITH INCREASED PAIN. PRN ADMINISTERED FOR PAIN. DR. RODRIGUEZ CALLED FOR ADDITIONAL N/V MEDICATIONS. NEW TELEPHONE ORDERS RECEIVED VERIFIED WITH READ BACK METHOD.
--- NOTE | 2021-01-12 05:11 | NUR ---
PRN PHENERGAN ADMINISTERED ON IV PUMP DILUTED IN 20 ML NS OVER 10 MIN. IV PATENT. INFUSED WNL. VS AND I&O COMPLETE. NGT PATENT WITH GREENISH BROWN DRAINAGE. PT RESTING IN BED AT THIS TIME. NO FURTHER NEEDS.
--- NOTE | 2021-01-12 06:15 | NUR ---
IV FLUIDS INCREASED TO 150 PER ORDER.
--- NOTE | 2021-01-12 06:52 | CONS ---
[facility] [address], [place] [address] Signed DATE OF CONSULTATION: 01/12/2021 CHIEF COMPLAINT: Nausea and vomiting. 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 He had been in [place] living with his for a while and came back to the [facility]. He said he has had five or six small bowel obstructions. He is not sure why. He had a laparoscopic lysis of adhesions in the past and then last year, he underwent repair of an umbilical hernia with mesh with Dr. Peerz. He said usually broccoli or cauliflower will do it. Yesterday, he started to develop abdominal distention with nausea and vomiting after some cauliflower. He came to emergency room for evaluation. CT scan shows a small bowel obstruction somewhere in his mid jejunum or proximal ileum just to the right of the midline somewhat anteriorly. I was therefore asked to admit him as a general surgeon on-call. In the meantime, he has had an NG tube placed with return of over 800 mL of semi-liquidy stool appearing material. In general, he is feeling better. PAST MEDICAL HISTORY: Small bowel obstructions, hypertension, insulin-dependent diabetes, paroxysmal supraventricular tachycardia, diverticulosis, and acid reflux. PAST SURGICAL HISTORY: Includes knee surgery in both feet, , laparoscopic lysis of adhesions, umbilical hernia repair in [address] Perez. SOCIAL HISTORY: He does not smoke. He has a drink once in a while. He is to his , Amirah at [phone]. Monique Rudynaun is his primary care provider. He prefers the [facility]. He is a retired nurse. He has one child and two stepchildren. He does drive. FAMILY HISTORY: His father had an DE, prostate cancer and high triglycerides. REVIEW OF SYSTEMS: He had 10 systems reviewed and they are mentioned in the above. ALLERGIES: GABBI inhibitors, morphine, hydrocodone, oxycodone, hydromorphone, but Toradol and fentanyl were fine. MEDICATIONS: Electronically Signed By: DEYVI RODRIGUEZ MD 01/12/21 0652 PATIENT NAME: JORDON JACOBSON CONSULTATION DATE OF : 46 REPORT #: [id number] PHYSICIAN: DEYVI RODRIGUEZ MD PCP: MONIQUE WINCHESTER [facility] REPORT IS CONFIDENTIAL AND NOT TO BE RELEASED WITHOUT AUTHORIZATION [facility] [address], [place] [address] Signed Protonix, insulin, multivitamins, Zetia, losartan, Trulicity, diltiazem, simvastatin. PHYSICAL EXAMINATION: VITAL SIGNS: Blood pressure is 132/83, heart rate 69, respiratory rate 18, temperature is 97.5, he is 97% on room air, he is 5 feet 7 inches at 95 kg. GENERAL: Jordon is a 70-year-old gentleman. He does not appear systemically ill or toxic. LUNGS: Clear to auscultation bilaterally. HEART: Regular rate and rhythm without murmurs. ABDOMEN: Moderately protuberant, but soft. He is a little tender around the periumbilical area. LABORATORY DATA: His white blood count is 13.5, his hemoglobin is 18, neutrophils 80, BUN 29, creatinine 1.48, glucose 97. Urinalysis negative. Liver function tests are negative. Lipase is 32. RADIOGRAPHIC STUDIES: CT scan of abdomen and pelvis shows the dilation around 3.8 cm of the mid jejunum and proximal ileum. There appears to be a transition point anteriorly in the abdomen just to the right of the midline around the level of the umbilicus. ASSESSMENT AND PLAN: Jordon is a 70-year-old gentleman, who presents with yet another small bowel obstruction. He has been admitted given IV fluids, made n.p.o. and an NG tube. Overall, he is better. He seems to be a little dehydrated as well. We are going to continue on a conservative basis for now and we will get our Internal Medicine Service to see him for the medical issues. He is well aware, he may need surgery with respect to the above. He has expressed understanding and agrees to above plan. Deyvi Rodriguez MD ALB/MODL /[id number] cc: MD Monique Mathis Electronically Signed By: DEYVI RODRIGUEZ MD 01/12/21 0652 PATIENT NAME: JORDON JACOBSON CONSULTATION DATE OF : 46 REPORT #: [id number] PHYSICIAN: DEYVI RODRIGUEZ MD PCP: MONIQUE WINCHESTER [facility] REPORT IS CONFIDENTIAL AND NOT TO BE RELEASED WITHOUT AUTHORIZATION [address] [address] Signed Copies: DEYVI RODRIGUEZ MD ~ Electronically Signed By: DEYVI RODRIGUEZ MD 01/12/21 0652 PATIENT NAME: JORDON JACOBSON CONSULTATION DATE OF : 46 REPORT #: [id number] PHYSICIAN: DEYVI RODRIGUEZ MD PCP: MONIQUE WINCHESTER PAC REPORT IS CONFIDENTIAL AND NOT TO BE RELEASED WITHOUT AUTHORIZATION
--- NOTE | 2021-01-12 07:02 | NUR ---
CALL LIGHT ANSWERED. PT SITTING ON SIDE OF BED C/O ABD PAIN 05/11. PRN ADMINISTERED PER EMAR. PRN ALSO ADMINISTERED FOR NAUSEA. PT WITH NO FURTHER NEEDS AT THIS TIME. CALL LIGHT IN REACH.
--- NOTE | 2021-01-12 07:46 | NUR ---
Patient sitting up at bedside, alert and oriented x3. Patient reports he is doing ok. NG intact to LIWS. IV infusing without difficulty. No needs reported. Personal supplies and call light within reach.
--- NOTE | 2021-01-12 08:17 | NUR ---
Phenergan 12.5mg IVP admin for N/V. NG irrigated to clear line; output greenish/brown in color. Warm compress provided and oral care done. Patient reports he feels better after vomiting. Call light within reach.
--- NOTE | 2021-01-12 09:05 | NUR ---
PATIENTS VITALS DONE AND CHARTED. GAVE WASHCLOTH FOR FACE. NOTHING ELSE NEEDED AT THIS TIME.
--- NOTE | 2021-01-12 10:07 | NUR ---
REQUESTED RECORDS FROM [facility] ON PATIENT.
--- NOTE | 2021-01-12 11:20 | NUR ---
Fentanyl 50mcg IVP admin for reports of 9/10 abd pain. NG irrigated with 30ml of tap water due to NG occlusion; patient tolerated well-immediate return of clear, brown gastric drainage noted. NG to LIWS. Patient denies needs at this time. Personal supplies and call light within reach.
--- NOTE | 2021-01-12 11:45 | NUR ---
Spoke with Hay. 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 Assessment was cut short as pt is very nauseated and painful at times. Will follow up tomorrow. Pt plans on dc to home when cleared medically. is unable to visit as she is on isolation for a procedure this week.
--- NOTE | 2021-01-12 12:31 | NUR ---
MED REC COMPLETE
--- NOTE | 2021-01-12 12:37 | NUR ---
Patient resting soundly, eyes closed, respirations non labored. No notable distress. NG to LIWS, patent with brown colored gastric content. Personal supplies and call light within reach.
--- NOTE | 2021-01-12 13:05 | NUR ---
Toradol 15mg ivp and zofran 8mg ivp admin for 6/10 abd pain and n/v. 400ml emesis out; brown in color.
--- NOTE | 2021-01-12 14:09 | NUR ---
PATIENTS VITALS DONE AND CHARTED NOTHING MORE NEEDED AT THIS TIME.
--- NOTE | 2021-01-12 14:50 | NUR ---
CITLALI ROSAS INFORMED ME THAT PT HAS HAD A DIFFICULT AM AND WOULD PREFER I NOT DISTURB PT AT THIS TIME. WILL CONTINUE TO FOLLOW
--- NOTE | 2021-01-12 15:56 | NUR ---
Patient resting in bed, eyes closed, respirations even and non labored. No distress noted at this time. IV infusing without difficulty. NG intact and patent. Call light within reach.
--- NOTE | 2021-01-12 16:34 | NUR ---
Fentanyl 50mcg admin ivp for reports 6/10 abd pain.
--- NOTE | 2021-01-12 18:17 | NUR ---
SPOKE WITH CHRISTINA REGARDING UPDATE ON PT.
--- NOTE | 2021-01-12 19:30 | NUR ---
Admin Fentanyl 50mcg ivp and phenergan 12.5mg ivp (pump) for reported nausea and 9/10 abd pain.
--- NOTE | 2021-01-12 20:11 | NUR ---
RECEIVED REPORT FROM DAY SHIFT RN. PATIENT IS SITTING AT THE EDGE OF THE BED. DAY SHIFT RN. ADMINISTERING PAIN AND NAUSEA MEDICATION. NO FURTHER NEEDS NOTED. CALL LIGHT IN REACH.
--- NOTE | 2021-01-12 21:25 | NUR ---
PATIENT ASSESMENT COMPLETED. PATIENT IS SITTING UP ON THE EDGE OF THE BED. PATIENT HAS NG IN PLACE THAT IS LWIS. DRAINAGE IN NG TUBE NOTED THAT IS BROWN. PATIENT RATES PAIN AT A 7/10. PATIENT GIVEN PRN PAIN MEDICATION PER ORDER. PATIENT ALSO REPORTS NAUSEA. PATIENT GIVEN PRN NAUSEA MEDICATION PER ORDER. PATIENTS BS CHECKED PER ORDER AND IS WNL. PATIENT UP TO THE RESTROOM. PATIENT FEELS LIKE HE HAS TO HAVE BM. NO FURTHER NEEDS NOTED. CALL LIGHT IN REACH.
--- NOTE | 2021-01-12 21:50 | NUR ---
PATIENT IS CONCERNED THAT THERS IS BLOOD IN HIS STOOL. CHAIM TESTED FOR BLOOD AND IT WAS FOUND TO BE NEGATIVE. PATIENT HAD MEDIUM LOOSE/SOFT BM. PATIENT DENIES ANY FURTHER NEEDS AT THIS TIME. CALL LIGHT IN REACH.
--- NOTE | 2021-01-12 22:00 | NUR ---
CALL LIGHT ANSWERED, pt BACK IN BED FROM RESTROOM AFTER LOOSE BROWN BOWEL MOVEMENT AND DRIBBLE OF URINE. pt PROVIDED WITH WARM WASH CLOTH FOR HANDS. NO ADDITIONAL REQUESTS. CALL LIGHT WITHIN REACH. NGT IN PLACE.
--- NOTE | 2021-01-13 00:17 | NUR ---
PATIENT REPORTS NAUSEA. NO MEDICATIONS AVAILABLE AT THIS TIME. PLACED CALL TO MD. NEW ORDERS RECEIVED VERIFIED ORDERS USING THE READBACK METHOD. PATIENT GIVEN PRN NAUSEA MEDICATION PER ORDER. IMAGING IN ROOM TO CHECK NG PLACEMENT. NO FURTHER NEEDS NOTED. CALL LIGHT IN REACH.
--- NOTE | 2021-01-13 00:57 | NUR ---
RT IN ROOM. PATIENT PLACED ON CPX AND 2L VIA NC. PATIENT STATED "NAUSEA IS BETTER". NO FURTHER NEEDS NOTED. CALL LIGHT IN REACH.
--- NOTE | 2021-01-13 01:47 | NUR ---
PATIENTS VITALS TAKEN AND RECORDED. PATIENTS ATTEND CHANGED. PATIENT WAS INCONTINENT OF STOOL AND URINE. PATIENT REPOSITIONED IN BED. NO NEEDS NOTED. CALL LIGHT IN REACH.
--- NOTE | 2021-01-13 02:47 | NUR ---
PATIENTS BS TAKEN PER ORDER AND IS WNL. PATIENT DENIES ANY PAIN OR NAUSEA. PATIENT REMAINS ON 2L VIA NC. PATIENTS NG IS TO LWIS. PATIENT IS ON CPOX AND READINGS ARE WNL. PATIENT DENIES ANY NEEDS. CALL LIGHT IN REACH.
--- NOTE | 2021-01-13 05:36 | NUR ---
PATIENTS MORNING VITALS TAKEN AND RECORDED. INTAKE AND OUTPUT RECORDED. PATIENT DENIES ANY NAUSEA. PATIENT RATES PAIN AT A 2/10 AND DENIES THE NEED FOR PAIN MEDICATION AT THIS TIME. NG TO LWIS. PATIENT DENIES ANY NEEDS. CALL LIGHT IN REACH.
--- NOTE | 2021-01-13 05:40 | NUR ---
PATIENT IS NPO AT THIS TIME. NG TO LWIS. PATIENT IS ON RA DURING THE DAY AND 2L VIA NC AT NIGHT DUE TO APNEA. PATIENT HAS BS CHECKS PER ORDER. PATIENT HAS RECEIVED PRN PAIN AND NAUSEA MEDICATION PER ORDER. PATIENTS ABD IS LESS DISTENTEND. BOWEL TONES HYPOACTIVE-ACTIVE. PATIENT IS AAOX4.
--- NOTE | 2021-01-13 08:43 | NUR ---
PATIENTS AM CARE AND VITALS DONE. GOT PATIENT SET UP FOR A PARTIAL BATH AND CLOTHING CHANGE. LINEN CHANGED. NOTHING ELSE NEEDED AT THE MOMENT
--- NOTE | 2021-01-13 11:56 | NUR ---
Patient resting in bed, eyes closed, respirations even and non labored. Patient has no distress. NG to LIWS, light brown/green colored gastric drainage noted. Personal supplies and call light within reach.
--- NOTE | 2021-01-13 12:18 | NUR ---
Verbal order from Dr. Ludwig obtained to bolus remaining amoun of IV fluids; rate increased to 999ml/hr on pump. Tylenol 1000mg IVP admin for reports of 6/10 head pain.
--- NOTE | 2021-01-13 13:45 | NUR ---
PATIENT RESTING IN BED, WAKES TO VOICE. VITALS AND I&OS CHARTED. CALL LIGHT IN REACH. NO OTHER NEEDS AT THIS TME
--- NOTE | 2021-01-13 18:42 | NUR ---
PATIENT RESTING IN BED, NG IN PLACE. VITALS AND I&OS CHARTED. CALL LIGHT IN REACH, NO OTHER NEEDS AT THIS TIME
--- NOTE | 2021-01-13 19:48 | NUR ---
RECEIVED REPORT FROM DAY SHIFT RN. PATIENT IS RESTING IN BED WITH EYES CLOSED, RR 17. CALL LIGHT IN REACH.
--- NOTE | 2021-01-13 21:55 | NUR ---
PATIENT ASSESMENT COMPLETED. PATIENT DENIES ANY PAIN OR NAUSEA. PATIENT ONLY REPORTS "HUNGER PAINS". PATIENT IS RESTING IN BED 2L VIA NC IN PLACE. NG TO LWIS. PATIENT HAS IV INFUSING PER ORDER. PATIENTS VITALS TAKEN AND RECORDED. INTAKE AND OUPUT RECORDED. PATIENTS NG HAS A SMALL AMOUNT OF LIGHT BROWN DRAINANGE IN CANISTER. PATIENT DENIES ANY NEEDS. CALL LIGHT IN REACH.
--- NOTE | 2021-01-14 02:07 | NUR ---
PATIENTS 0200 BS CHECKED AND FOUND TO BE WNL. PATIENT DENIES ANY [AIN OR NAUSEA. PATIENT CONTINUES TO BE ON 2L VIA NC. PATIENTS NG CONTINUES TO BE LWIS. NO FURTHER NEEDS NOTED. CALL LIGHT IN REACH.
--- NOTE | 2021-01-14 04:36 | NUR ---
PATIENT CALLED AND REQUESTED NASUEA MEDICATION. PATIENT GIVEN PRN NAUSEA MEDICATION PER ORDER. PATIENT DENIES ANY PAIN. NG CONTINUES TO BE LWIS. PATIENT IS UP SITTING IN RECLINER AT THIS TIME. PATIENT IS ON RA. PATIENT DENIES ANY FURTHER NEEDS CALL LIGHT IN REACH.
--- NOTE | 2021-01-14 05:33 | NUR ---
PATIENT RESTED WELL THROUGHOUT THE SHIFT. PATIENT IS NPO AT THIS TIME. PATIENT IS ON RA DURING THE DAY AND 2L VIA NC WHILE ASLEEP. PATIENT IS INDEPENDENT IN THE ROOM. PATIENT HAS NG IN PLACE THAT IS LWIS AND DRAINING LIGHT BROWN. PATIENTS URINE OUPUT QS. PATIENT HAS DENIED PAIN. PATIENT RECEIVED PRN NASUEA MEDICATION X1. PATIENT IS ANXIOUS AT TIMES. PATIENT IS AAOX4.
--- NOTE | 2021-01-14 08:00 | NUR ---
patient up in the chair. blood sugar done. linen change refused. call light within reach no further needs at this time.
--- NOTE | 2021-01-14 08:50 | NUR ---
Pt sitting up in chair, denies needs.
--- NOTE | 2021-01-14 09:13 | NUR ---
Pt sitting up in chair, call light within reach. Pt denies dizziness or needs.
--- NOTE | 2021-01-14 09:51 | NUR ---
THIS RN INTO SEE PATIENT. IMAGING HERE TO TAKE PATIENT FOR SMALL BOWEL FOLLOW. NG TUBE CAPPED AND IV SL. PATIENT ABLE TO TRANSFER TO WITH NO ASSIST. ADVISED PATIENT RN WILL BE BACK TO ASSESS PATIENT WHEN HE RETURNS TO FLOOR.
--- NOTE | 2021-01-14 15:20 | NUR ---
Spoke with Hay. Feeling 100% better. Plans on dc as he feels his sbo has cleared, he is having bm's and passing barium. Denies needs for dc. Dr. Rees will see shortly. Hay has called his to drive him home.
--- NOTE | 2021-01-15 06:34 | DS ---
[facility] [address], [place] [address] Signed ADMISSION DATE: 01/12/2021 DISCHARGE DATE: 01/13/2021 FINAL DIAGNOSIS: Resolved recurrent small-bowel obstruction. PROCEDURES: 1. CT scan of abdomen and pelvis. 2. Small bowel follow-through. 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 He spoke of laparoscopic lysis of adhesions years ago. He had his umbilical hernia repaired with Dr. Perez in 2019. I suspect he has Prolene mesh in the preperitoneal space. He had been living up in [place] with his for a while and decided to come back to [place]. He said cauliflower or broccoli can cause him trouble and sure enough it did. He ended up coming to the emergency room with his abdominal distention and nausea and vomiting. CT scan showed something in the mid jejunum to proximal ileum. It is anterior and somewhat to the right of the midline. I have been asked to admit him as a general surgeon on-call. HOSPITAL COURSE: Jordon was admitted as above and treated conservatively with IV fluids and an NG tube. He vomited a couple of times and had multiple bowel movements. Eventually, the fluid turned to a bilious green color and his abdominal exam was markedly improved. He always has a moderate protuberant abdomen at baseline. He has a well healed periumbilical incision from the umbilical hernia repair. We decided to send him for a small-bowel follow-through this morning. He did absolutely fantastic. Small bowel is not dilated. There is no transition point and the contrast went right through. He has continued to have multiple bowel movements this afternoon involving the contrast. He is tolerating his clear liquid diet. He would like to be discharged to home as his is headed for upper endoscopy with dilation tomorrow with Dr. Perez. DISCHARGE PLANS AND MEDICATIONS: Jordon will be discharged to home without any new medications. He told me he always follows a clear liquid diet for a couple of days following a bowel obstruction, any advances as tolerated. He knows that someday he may need surgery for his bowel obstruction. We are not going to add any medications to him. He can take his usual medications at home. He can follow up my office as needed. If he needed additional help, he has been friends with Dr. Perez for many years and would give him a call. He has expressed understanding and agrees with the above plan. Electronically Signed By: DEYVI RODRIGUEZ MD 01/15/21 0634 PATIENT NAME: JORDON JACOBSON DISCHARGE SUMMARY DATE OF : 46 REPORT #: [id number] PHYSICIAN: DEYVI RODRIGUEZ MD PCP: MARIAJOSE WINCHESTER REPORT IS CONFIDENTIAL AND NOT TO BE RELEASED WITHOUT AUTHORIZATION [address] [address] Signed MD DURAN Mathis/JENNIE /[id number] cc: MD Dr. Mariajose Mathis MD Copies: DEYVI RODRIGUEZ MD, JOHN MD ~ Electronically Signed By: DEYVI RODRIGUEZ MD 01/15/21 0634 PATIENT NAME: JORDON JACOBSON DISCHARGE SUMMARY DATE OF : 46 REPORT #: [id number] PHYSICIAN: DEYVI RODRIGUEZ MD PCP: MARIAJOSE WINCHESTER PAC REPORT IS CONFIDENTIAL AND NOT TO BE RELEASED WITHOUT AUTHORIZATION
== END 2021-01-14 17:20 | disposition home or self-care (01) | DRG 389 ==
LOC: ED 19:36 → MS 19:39
PROVIDERS: ADMIT Colon & Rectal Surgery; ATTEND Colon & Rectal Surgery
DX: K56.609 Unspecified intestinal obstruction, unspecified as to partial versus complete obstruction (principal); N17.9 Acute kidney failure, unspecified; Z20.822 Contact with and (suspected) exposure to COVID-19; I10 Essential (primary) hypertension; I49.5 Sick sinus syndrome; K21.9 Gastro-esophageal reflux disease without esophagitis; E11.9 Type 2 diabetes mellitus without complications; K57.90 Diverticulosis of intestine, part unspecified, without perforation or abscess without bleeding; Z88.5 Allergy status to narcotic agent; Z88.8 Allergy status to other drugs, medicaments and biological substances; Z79.899 Other long term (current) drug therapy; Z79.4 Long term (current) use of insulin
CPT/HCPCS: 36415; 71045; 74177; 74250; 80048; 80053; 81001; 83690; 83735; 84100; 84134; 85025; 94762; C9113; C9803; J0131; J1650; J1815; J1885; J2405; J2550; J3010; J7030; J7121; Q9967; U0003

== ENCOUNTER 2021-07-12 14:53 | Inpatient (IN) | payer MEDICARE ==
[~2021-07-12] VITALS: Ht 170.2 cm; Wt 98.9 kg
[2021-07-12] MEDS ORDERED: VITAMIN D3 COM1 EACH PO (15:22)
--- NOTE | 2021-07-12 18:47 | NUR ---
this rn received report from mk peres. pt not to floor yet
--- NOTE | 2021-07-12 19:48 | NUR ---
RECEIVED REPORT FROM DAY SHIFT RN. PATIENT IS RESTING IN BED. NG LWIS. DAY SHIFT RN COMPLETING ADMISSION. NO NEEDS NOTED. CALL LIGHT IN REACH.
--- NOTE | 2021-07-12 21:07 | NUR ---
RAUL GODWIN ADMINISTERED PRN NAUSEA AND PAIN MEDICATION PER ORDER. PATIENT HAD 800ML OF EMESIS. PATIENT IS QUESTIONING NG PLACEMENT. MD IN TO SEE PATIENT. TUBE IS IN CORRECT PLACEMENT. NG FLUSHED AND PLACED ON CONTINUOUS SUCTION. NG NOW HAS DRAINGE. NF PLACED BACK IN LWIS. PATIENT PLACED ON 5L VIA NC. PATIENTS SCHEDULED MEDICATION GIVEN PER ORDER. SCDS PLACED ON. PATIENT DENIES ANY NAUSEA. PATIENT RATES PAIN AT A 2/10. PATIENT DENIES THE NEED FOR ADDITIONAL PAIN MEDICATION AT THIS TIME. PATIENTS IV INFUSING PER ORDER. PATIENT DENIES ANY FURTHER NEEDS. CALL LIGHT IN REACH.
--- NOTE | 2021-07-12 22:01 | NUR ---
PATIENTS CANISTER CHANGED. PATIENT RATES ABD PAIN AT A 7/10. PATIENT GIVEN PRN PAIN MEDICATION PER ORDER. PATIENT DENIES ANY NAUSEA. NG LWIS. 5L VIA NC. CPOX IN USE. CALL LIGHT IN REACH.
--- NOTE | 2021-07-12 23:32 | NUR ---
PATIENT ASSISTED TO THE RESTRROM A SBA. PATIENT WAS ABLE TO VOID. URINA SAMPLE SENT. PATIENT IS HOOKED TO LWIS. PATIENTS IV INFUSING PER ORDER. PATIENT IS ON 5L VIA NC. PATIENT GIVEN PRN PAIN AND NAUSEA MEDICATION PER ORDER. PATIENT HAS SCDS IN USE. NO FURTHER NEED NOTED. CALL LIGHT IN REACH.
--- NOTE | 2021-07-13 00:52 | NUR ---
PATIENT IS RESTING IN BED WITH EYES CLOSED, CPOX READINGS ARE WNL. NG TO LWIS. IV INFUSING PER ORDER. CALL LIGHT IN REACH.
--- NOTE | 2021-07-13 02:19 | NUR ---
PATIENTS VITALS TAKEN AND RECORDED. INTAKE AND OUTPUT RECORDED. PATIENT RATES PAIN AT A 5/10. PRN PAIN MEDICATION GIVNE PER ORDER. PATIENT DENIES ANY NAUSEA. PATIENT REMAINS ON IV FLUIDS PER ORDER. NG LWIS. CPOX IN USE. SCDS IN PLACE. PATIENT DENIES ANY NEEDS. CALL LIGHT IN REACH.
--- NOTE | 2021-07-13 03:37 | NUR ---
PATIENT IS RESTING IN BED WITH EYES CLOSED, CPOX READINGS ARE WNL. CALL LIGHT IN REACH.
--- NOTE | 2021-07-13 05:22 | NUR ---
PATIENTS NG FLUSHED AND IS HOOKE TO LWIS. IV INFUSING. PRN MEDICATION GIVEN PER ORDER. PATIENT HAS SCDS IN USE. 4L VIA NC. NO FURTHER NEEDS NOTED. CALL LIGHT IN REACH.
--- NOTE | 2021-07-13 08:08 | NUR ---
PT AWAKE AND IN CHAIR. UPDATED WHITE BOARD. BLINDS ARE OPEN. PT ACCEPTED WARM CLOTH. NO FURTHER NEEDS AT THIS TIME.
--- NOTE | 2021-07-13 09:13 | NUR ---
PATIENT NGT PLUGGED, SALINE LOCKED AND TO IMAGING FOR START OF SBFT. PLAN IS FOR PATIENT TO BE IN IMAGING DEPT FOR 30 MINUTES TO BEGIN WITH. LINENS FRESHENED.
--- NOTE | 2021-07-13 09:32 | NUR ---
MED REC COMPLETE
--- NOTE | 2021-07-13 09:44 | NUR ---
Patient off medical floor for imaging.
--- NOTE | 2021-07-13 11:25 | NUR ---
Patient left floor again for imaging.
--- NOTE | 2021-07-13 11:30 | NUR ---
Spoke with Hay and his , Ernestine, who I know well. He has returned wit h SBO which he gets from time to time after eating fresh vegetables. This time it was from [employer]. Pt and are retired RNs. He does not use any DME and they are financially secure. Plans on dc today to home after lunch. He had a SB follow through today. Denies any needs and plans on dc today.
--- NOTE | 2021-07-13 11:55 | HP ---
[facility] [address] [place], [place] [address] Signed ADMISSION DATE: 07/12/2021 TIME: 8:20 p.m. PROBLEM: Recurrent small bowel obstruction. HISTORY OF PRESENT ILLNESS: This 70-year-old white man is well known to me from the past. He has underlying diabetes mellitus. He is admitted to the hospital at this time with a recurrent small-bowel obstruction. The patient has had several episodes of bowel obstruction over the years, most recently in June of 2020. Each time decompression of the gut, IV fluids and bowel rest has allowed for resolution of the problem. His last episode was in December of 2020, where he was admitted by Dr. Rees. He had resolution with conservative measures including decompression of the stomach with nasogastric tube and so forth. He did undergo a small-bowel follow-through on his last hospitalization, which showed no sign of problem. There is no evidence of transition point. His symptoms today began in the morning with vague abdominal pain late in the day rather severe and unrelenting. He did not have nausea or vomiting, however. His presentation in the emergency room was noted by Dr. Avila to have considerable distention and obvious abdominal pain. A CT scan of the abdomen was performed, which showed a transition point of small bowel somewhat in the pelvis. PAST SURGICAL HISTORY: Does include umbilical hernia repair, which I performed a number of years ago with implantation of mesh. There appears to be no evidence currently of obstruction at the site of the previous repair. PAST MEDICAL HISTORY: Notable for diabetes mellitus. He also has gastroesophageal reflux symptoms and hypertension. MEDICATIONS: At the time of admission include: 1. Diltiazem 120 mg p.o. daily. 2. Zetia 10 mg p.o. at bedtime. 3. Lantus insulin 65 units subcu daily. Electronically Signed By: MARJORIE DORSEY MD 07/13/21 1155 PATIENT NAME: JORDON JACOBSON HISTORY AND PHYSICAL DATE OF : 46 REPORT #: [id number] PHYSICIAN: MARJORIE DORSEY MD PCP: MARIAJOSE WINCHESTER PAC REPORT IS CONFIDENTIAL AND NOT TO BE RELEASED WITHOUT AUTHORIZATION [facility] [address] [place], [place] [address] Signed 4. Humalog daily in divided doses depending on blood sugar. 5. Losartan 25 mg p.o. at bedtime. 6. Multivitamin. 7. Pantoprazole 40 mg at bedtime. 8. Simvastatin 40 mg p.o. at bedtime. ALLERGIES: To GABBI inhibitors, morphine, hydrocodone, oxycodone and hydromorphone. SOCIAL HISTORY: He is retired nurse from [employer]. He is . His is a retired nurse as well, I know them both well. REVIEW OF SYSTEMS: He denies any shortness of breath or chest pain. He has had no dysphagia or dysuria. He does not feel necessarily better with nasogastric tube placement. He is having no pelvic pain particularly. PHYSICAL EXAMINATION: GENERAL: Pleasant white man who does not look systemically toxic, though somewhat uncomfortable. VITAL SIGNS: Temperature is 98.6, pulse 71, blood pressure 125/74, O2 saturation 97% on room air. NECK: Shows no thyromegaly or cervical adenopathy. Trachea is midline. Nasogastric tube is emanating from the nose, did not show much in the way of bilious fluid, and only scant amount of fluid thus far. CHEST: Shows normal respiratory excursion without tachypnea. HEART: Regular without murmur. ABDOMEN: Distended, but nontender. There is no focal mass. EXTREMITIES: Show no clubbing, cyanosis, or edema. He does not yet have sequential compression device stockings in place. LABORATORY STUDIES: Show white count of 11.3, hematocrit 53.8, platelets 194,000. Chem profile is normal though creatinine is 1.24, glucose 108. Liver enzymes normal. Lipase 29. Urinalysis has not yet received. Serology, COVID was negative. I have reviewed the imaging studies and I have reviewed the reports attended to them. There does appear to be a transition point in the pelvis of small bowel unrelated to the anterior abdominal wall. Dilation of small bowel loops is up to 4.5 cm in diameter. ASSESSMENT: The patient clearly has small bowel obstruction and on this occasion with a clear Electronically Signed By: MARJORIE DORSEY MD 07/13/21 1155 PATIENT NAME: JORDON JACOBSON HISTORY AND PHYSICAL DATE OF : 46 REPORT #: [id number] PHYSICIAN: MARJORIE DORSEY MD PCP: MARIAJOSE WINCHESTER PAC REPORT IS CONFIDENTIAL AND NOT TO BE RELEASED WITHOUT AUTHORIZATION [facility] [address] [place] [address] [place], [place] [address] Signed transition point on CT scan findings. We will give intravenous fluid resuscitation, maintain nasogastric tube decompression, ulcer prophylaxis, sequential compression device stockings application and perform abdominal KUB in the a.m. It may be that surgical exploration and remedy of the bowel obstruction in a definitive way is indicated on this hospitalization. His previous hospitalizations have been promptly recovered with the usual measures in this situation, particularly given the obvious transition point operative intervention may be more beneficial. MD JULEE Hurst/LILIYAL /[id number] cc: PILO Roy MD Copies: CATHRYN AVILA MD ~ Electronically Signed By: MARJORIE DORSEY MD 07/13/21 1155 PATIENT NAME: JORDON JACOBSON HISTORY AND PHYSICAL DATE OF : 46 REPORT #: [id number] PHYSICIAN: MARJORIE DORSEY MD PCP: MARIAJOSE WINCHESTER PAC REPORT IS CONFIDENTIAL AND NOT TO BE RELEASED WITHOUT AUTHORIZATION
--- NOTE | 2021-07-13 13:17 | NUR ---
NG removed by student nurse with nurse instructor assist. Patient tolerated removal well. Patient denies nausea at this time. Diet advanced to full liquids by Dr. Florence. Lunch order placed. Patient hoping to go home today after he eats. No current needs. Personal supplies and call light within reach.
--- NOTE | 2021-07-13 14:12 | NUR ---
Patient tolerating full liquid diets. Patient denies nausea at this time. Patient would like to go home. Will discharge pt to home.
== END 2021-07-13 15:10 | disposition home or self-care (01) | DRG 390 ==
LOC: ED 14:53 → MS 14:54
PROVIDERS: ADMIT Surgery; ATTEND Surgery
PROC: 0D9670Z Drainage of Stomach with Drainage Device, Via Natural or Artificial Opening (ICD-10-PCS; principal; 2021-07-12)
DX: K56.609 Unspecified intestinal obstruction, unspecified as to partial versus complete obstruction (principal); E11.9 Type 2 diabetes mellitus without complications; K21.9 Gastro-esophageal reflux disease without esophagitis; I10 Essential (primary) hypertension; Z79.899 Other long term (current) drug therapy; Z79.4 Long term (current) use of insulin; Z88.8 Allergy status to other drugs, medicaments and biological substances; Z88.5 Allergy status to narcotic agent; Z20.822 Contact with and (suspected) exposure to COVID-19; Z98.890 Other specified postprocedural states
CPT/HCPCS: 43752; 74018; 74177; 74250; 80053; 81001; 83690; 85007; 85025; 96376; 99285-25; G0378; J0131; J1885; J2405; J2550; J3010; J7030; J7121; U0003

== ENCOUNTER 2021-10-07 09:34 | Emergency (ER) | payer MEDICARE ==
[~2021-10-07] VITALS: Ht 170.2 cm; Wt 98.9 kg
[~2021-10-07 09:34] MED LIST changes: +VITAMIN D3 COM1 EACH PO
[2021-10-08] MEDS ORDERED: ONDANSETRON ODT4 MG PO (15:58)
== END 2021-10-07 12:41 | disposition home or self-care (01) ==
LOC: ED 09:34
DX: R31.0 Gross hematuria (principal); I10 Essential (primary) hypertension; E11.9 Type 2 diabetes mellitus without complications; K21.9 Gastro-esophageal reflux disease without esophagitis; Z88.5 Allergy status to narcotic agent; Z88.8 Allergy status to other drugs, medicaments and biological substances; Z79.899 Other long term (current) drug therapy; Z79.4 Long term (current) use of insulin
CPT/HCPCS: 74176; 80048; 81001; 85025; 99284-25

== ENCOUNTER 2021-10-08 09:56 | Emergency (ER) | payer MEDICARE ==
[~2021-10-08] VITALS: Ht 170.2 cm; Wt 98.9 kg
--- OUTSIDE RECORDS SUMMARY | 2021-10-08 10:04 | XMS ---
PreManage Notification: JORDON JACOBSON Security Qi Specialist Events No recent Security Events currently on file CRITERIA MET - [facility] - 2 Visits in 30 Days CARE PROVIDERS There are no care providers on record at this time. Harvinder has no Care Guidelines for this patient. [facility] V[facility] (12 MO.) [facility] T[facility] NOTE: Visits indicate total known visits. ED/C VISIT TRACKING (12 MO.) 10/08/2021 09:57 [facility] TYPE: Emergency COMPLAINT: - FLANK PAIN 10/07/2021 09:35 [facility] [place] TYPE: Emergency COMPLAINT: - BLOOD IN URINE 07/12/2021 14:53 [facility] [place] TYPE: Emergency COMPLAINT: - ABDOMINAL PAIN 01/11/2021 19:38 [facility] [place] TYPE: Emergency COMPLAINT: - STOMACH PAIN INPATIENT VISIT TRACKING (12 MO.) 07/12/2021 20:31 [facility] [place] TYPE: Medical Surgical COMPLAINT: - SMALL BOWEL OBSTRUCTION DIAGNOSES: - Other [place] [facility] (current[facility] drug therapy - Other specified postprocedural states - Allergy status to other drugs, medicaments and biological substances - Allergy status to narcotic agent - Type 2 diabetes mellitus without complications - senior living (current) use of insulin - Essential (primary) hypertension - Unspecified intestinal obstruction, unspecified as to partial versus complete obstruction - Gastro-esophageal reflux disease without esophagitis - Other [place] [facility] (current) drug therapy - Essential (primary) hypertension - Other specified postprocedural states - Allergy status to other drugs, medicaments and biological substances 01/12/2021 06:01 [facility] [place] TYPE: Medical Surgical COMPLAINT: - SMALL BOWEL OBSTRUCTION DIAGNOSES: - Diverticulosis of intestine, part unspecified, without perforation or abscess without bleeding - Sick sinus syndrome - Essential (primary) hypertension - Unspecified intestinal obstruction, unspecified as to partial versus complete obstruction - Allergy status to other drugs, medicaments and biological substances - Type 2 diabetes mellitus without complications - Acute kidney failure, unspecified - 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
[2021-10-08] MEDS ORDERED: ONDANSETRON ODT4 MG PO (15:58)
== END 2021-10-08 16:06 | disposition home or self-care (01) ==
LOC: ED 09:56
DX: N20.0 Calculus of kidney (principal); I10 Essential (primary) hypertension; E11.9 Type 2 diabetes mellitus without complications; K21.9 Gastro-esophageal reflux disease without esophagitis; Z88.5 Allergy status to narcotic agent; Z88.8 Allergy status to other drugs, medicaments and biological substances; Z79.4 Long term (current) use of insulin; Z79.899 Other long term (current) drug therapy
CPT/HCPCS: 74018; 74176; 96374; 99284-25; J1885; J7030

== ENCOUNTER 2021-10-10 08:18 | Emergency (ER) | payer MEDICARE ==
[~2021-10-10] VITALS: Ht 170.2 cm; Wt 98.9 kg
[~2021-10-10 08:18] MED LIST changes: +ONDANSETRON ODT4 MG PO
--- OUTSIDE RECORDS SUMMARY | 2021-10-10 08:22 | XMS ---
PreManage Notification: JORDON JACOBSON Security Girl Friday Events No recent Security Events currently on file CRITERIA MET - [facility] - 2 Visits in 30 Days CARE PROVIDERS There are no care providers on record at this time. Harvinder has no Care Guidelines for this patient. [place] [facility] ([facility] MO.) [facility] TOTAL 5 NOTE: Visits indicate total known visits. ED/C VISIT TRACKING (12 MO.) 10/10/2021 08:19 [facility] TYPE: Emergency COMPLAINT: - FLANK PAIN 10/08/2021 09:57 [facility] [place] TYPE: Emergency COMPLAINT: - FLANK PAIN 10/07/2021 09:35 [facility] [place] TYPE: Emergency COMPLAINT: - BLOOD IN URINE 07/12/2021 14:53 [facility] TYPE: Emergency COMPLAINT: - ABDOMINAL PAIN 01/11/2021 19:38 [facility] TYPE: Emergency COMPLAINT: - STOMACH PAIN INPATIENT VISIT TRACKING (12 MO.) 07/12/2021 20:31 [facility] [place] TYPE: Medical Surgical COMPLAINT: - SMALL BOWEL OBSTRUCTION DIAGNOSES: - Other [place] (current) drug therapy - Other specified postprocedural states - Allergy status to other drugs, medicaments and biological substances - Allergy status to narcotic agent - Type 2 diabetes mellitus without complications - termite treater helper (current) use of insulin - Essential (primary) hypertension - Unspecified intestinal obstruction, unspecified as to partial versus complete obstruction - Gastro-esophageal reflux disease without esophagitis - Other nursing home (current) drug therapy - Essential (primary) hypertension [...] complications - Acute kidney failure, unspecified - termite treater helper (current) use of insulin - Other nursing home (current) drug therapy - Allergy status to narcotic agent - Gastro-esophageal reflux disease without esophagitis [email or web address]
[2021-10-10] MEDS ORDERED: KETOROLAC TROME10 MG PO (13:36)
== END 2021-10-10 13:44 | disposition home or self-care (01) ==
LOC: ED 08:18
DX: N20.0 Calculus of kidney (principal); I10 Essential (primary) hypertension; E11.9 Type 2 diabetes mellitus without complications; K21.9 Gastro-esophageal reflux disease without esophagitis; Z88.5 Allergy status to narcotic agent; Z88.8 Allergy status to other drugs, medicaments and biological substances; Z79.4 Long term (current) use of insulin; Z79.899 Other long term (current) drug therapy
CPT/HCPCS: 51798; 76775; 81001; 99284-25; J1885; J2405

== ENCOUNTER 2021-12-27 05:40 | Day surgery (SDC) | payer MEDICARE ==
[~2021-12-27] VITALS: Ht 170.2 cm; Wt 95.5 kg
[~2021-12-27 05:40] MED LIST changes: +KETOROLAC TROME10 MG PO; +NOVOLOG100 UNIT/2
[2021-12-27] MEDS ORDERED: FENOFIBRATE40 MG PO (05:59)
--- NOTE | 2021-12-27 11:10 | NUR ---
12/27/21 1110 Estephania Rod 1027 PT ARRIVED IN PACU NON RESPONSIVE TO NOXIOUS STIMULI WITH OPA IN PLACE. BLOOD GLUCOSE 161. CBI RUNNING WITH URINE LIGHT RED. DR TALLEY. 1031 PT REACTIVE. OPA REMOVED. 1045 PT VISITING WITH STAFF. C/O URGE TO VOID. REMINDED OF CATHETER. CBI RUNNING WITH NO CHANGE IN COLOR OF URINE. DR TALLEY AND PT WILL GO HOME WITH JAVED. 1105 TO DS. REPORT GIVEN TO CITLALI SANTOYO AND EXPLAINED ABOUT PT GOING HOME WITH JAVED. AT BEDSIDE.
--- NOTE | 2021-12-27 11:11 | NUR ---
RETURNED FROM PACU HAS CBI INFUSING. LIGHT RED URINE AND NS.
--- NOTE | 2021-12-27 11:28 | NUR ---
REQUESTS PAIN MEDICINE TORADOL AND GIVEN. CBI INFUSED 2ND BAG HUNG. URINE VERY RED WHEN OFF.
--- NOTE | 2021-12-27 12:04 | NUR ---
STILL RATING PAIN /10. DR NYE NOTIFIED AND NEW ORDER.
--- NOTE | 2021-12-27 12:15 | NUR ---
DR NYE IN TO SEE PT.
--- NOTE | 2021-12-27 13:00 | NUR ---
dr thompson turned cbi off remains red. rx effective. sitting up talking and smiling.
--- NOTE | 2021-12-27 14:11 | NUR ---
1330 URINE RED NO CLOTS OR STRINGS. PT HAS SUPPLIES FOR BLADDER IRRIGATION AT HOME. REQUESTS TO GO HOME NOW. 650 OUT OF URINE.
[2022-01-04] MEDS ORDERED: MACROBID 100 M100 MG PO (23:32)
== END 2021-12-27 13:30 | disposition home or self-care (01) ==
LOC: DS 05:40
PROVIDERS: ATTEND Urology
PROC: 0TCB8ZZ Extirpation of Matter from Bladder, Via Natural or Artificial Opening Endoscopic (ICD-10-PCS; 2021-12-27)
PROC: 0VB03ZX Excision of Prostate, Percutaneous Approach, Diagnostic (ICD-10-PCS; 2021-12-27)
PROC: 0T768DZ Dilation of Right Ureter with Intraluminal Device, Via Natural or Artificial Opening Endoscopic (ICD-10-PCS; 2021-12-27)
PROC: BT1DZZZ Fluoroscopy of Right Kidney, Ureter and Bladder (ICD-10-PCS; 2021-12-27)
PROC: 0TCB8ZZ Extirpation of Matter from Bladder, Via Natural or Artificial Opening Endoscopic (ICD-10-PCS; principal; 2021-12-27 06:45)
PROC: 0T768DZ Dilation of Right Ureter with Intraluminal Device, Via Natural or Artificial Opening Endoscopic (ICD-10-PCS; 2021-12-27 06:45)
DX: N40.2 Nodular prostate without lower urinary tract symptoms (principal); R97.20 Elevated prostate specific antigen [PSA]; N20.0 Calculus of kidney; N21.0 Calculus in bladder; E11.9 Type 2 diabetes mellitus without complications; I10 Essential (primary) hypertension; Z88.5 Allergy status to narcotic agent; Z88.8 Allergy status to other drugs, medicaments and biological substances; Z20.822 Contact with and (suspected) exposure to COVID-19
CPT/HCPCS: 00918; 74420; 76942; 82365; 88344; C1769; C2617; G0416; J0131; J0690; J0696; J1100; J1885; J2001; J2370; J2405; J2704; J3010; J7121; Q9967

== ENCOUNTER 2021-12-31 09:53 | Emergency (ER) | payer MEDICARE ==
[~2021-12-31] VITALS: Ht 170.2 cm; Wt 95.2 kg
[~2021-12-31 09:53] MED LIST changes: +FENOFIBRATE40 MG PO
[2021-12-31] MEDS ORDERED: FLOMAX0.4 MG PO (11:13)
[2022-01-04] MEDS ORDERED: MACROBID 100 M100 MG PO (23:32)
== END 2021-12-31 11:35 | disposition home or self-care (01) ==
LOC: ED 09:53
DX: I10 Essential (primary) hypertension (principal); E11.9 Type 2 diabetes mellitus without complications; K21.9 Gastro-esophageal reflux disease without esophagitis; Z88.5 Allergy status to narcotic agent; Z88.8 Allergy status to other drugs, medicaments and biological substances; Z79.4 Long term (current) use of insulin; Z79.899 Other long term (current) drug therapy
CPT/HCPCS: 51702; 81001; 99283-25

== ENCOUNTER → 2022-01-04 | Emergency (ER) | payer MEDICARE ==
[~2022-01-04] VITALS: Ht 170.2 cm; Wt 98.0 kg
[~2022-01-04] MED LIST changes: +FLOMAX0.4 MG PO; +MACROBID 100 M100 MG PO
--- OUTSIDE RECORDS SUMMARY | 2022-01-04 22:46 | XMS ---
PreManage Notification: JORDON JACOBSON Security Cooling Tower Technician Events No recent Security Events currently on file CRITERIA MET - 6 ED Visits in 6 Months - [place] [facility] - 2 Visits in 30 Days CARE PROVIDERS MARIAJOSE WINCHESTER Physician Chairman Emeritus Current PHONE: Unknown Harvinder has no Care Guidelines for this patient. Care History Medical/Surgical 10/11/2021 [facility] - [facility] CALLED PATIENT- FOR FOLLOW UP TO RECENT ED VISITS- PATIENT IS NOT IN THAT MUCH PAIN AT THIS TIME AND IS CURRENTLY WAITING ON A CALL BACK FROM DR NYE OFFICE. - [facility]W CONTACTED DR NYE OFFICE AND PROVIDED RECENT ED VISIT CHART NOTES ALONG WITH IMAGING. - HAIR FROM DR NYE OFFICE STATED SHE WOULD HAVE DR NYE REVIEW THE CHART NOTES AND THEN SCHEDULE THE FOLLOW UP APT. DR NYE WAS IN SURGERY IN THE AM ON 10/11/21. [place] VISIT COUNT (12 MO.) 7 [facility] TOTAL 7 NOTE: Visits indicate total known visits. ED/UCC VISIT TRACKING (12 MO.) 01/04/2022 22:42 [facility] TYPE: Emergency COMPLAINT: - URINARY RETENTION 12/31/2021 09:53 [facility] TYPE: Emergency COMPLAINT: - UNABLE TO URINATE DIAGNOSES: - Allergy status to other drugs, medicaments and biological substances - Type 2 diabetes mellitus without complications - local intermodal truck driver (current) use of insulin - Other senior living (current) drug therapy - Gastro-esophageal reflux disease without esophagitis - Essential (primary) hypertension - Retention of urine, unspecified - Allergy status to narcotic agent 10/10/2021 08:19 [facility] TYPE: Emergency COMPLAINT: - FLANK PAIN DIAGNOSES: - Allergy status to other drugs, medicaments and biological substances - Type 2 diabetes mellitus without complications - Essential (primary) hypertension - Allergy status to narcotic agent - Calculus of kidney - local intermodal truck driver (current) use of insulin - Other senior living (current) drug therapy - Gastro-esophageal reflux disease without esophagitis - Unspecified abdominal pain 10/08/2021 09:57 [facility] TYPE: Emergency COMPLAINT: - FLANK PAIN DIAGNOSES: - Other senior living (current) drug therapy - local intermodal truck driver (current) use of insulin - Calculus of kidney - Allergy status to narcotic agent - Essential (primary) hypertension - Gastro-esophageal reflux disease without esophagitis - Allergy status to other drugs, medicaments and biological substances - Unspecified abdominal pain - Type 2 diabetes mellitus without complications 10/07/2021 09:35 [facility] TYPE: Emergency COMPLAINT: - BLOOD IN URINE DIAGNOSES: - local intermodal truck driver (current) use of insulin - Other senior living (current) drug therapy - Allergy status to other drugs, medicaments and biological substances - Gastro-esophageal reflux disease without esophagitis - Gross hematuria - Allergy status to narcotic agent - Essential (primary) hypertension - Type 2 diabetes mellitus without complications 07/12/2021 14:53 [facility] TYPE: Emergency COMPLAINT: - ABDOMINAL PAIN 01/11/2021 19:38 [facility] TYPE: Emergency COMPLAINT: - STOMACH PAIN INPATIENT VISIT TRACKING (12 MO.) 07/12/2021 20:31 [facility] TYPE: Medical Surgical COMPLAINT: - SMALL BOWEL OBSTRUCTION DIAGNOSES: - Other terminal gauger (current) drug therapy - Other specified postprocedural states - Allergy status to other drugs, medicaments and biological substances - Allergy status to narcotic agent - Type 2 diabetes mellitus without complications - retirement (current) use of insulin - Essential (primary) hypertension - Unspecified intestinal obstruction, unspecified as to partial versus complete obstruction - Gastro-esophageal reflux disease without esophagitis - Other senior living (current) drug therapy - Essential (primary) hypertension [...] complications - Acute kidney failure, unspecified - retirement (current) use of insulin - Other terminal gauger (current) drug therapy - Allergy status to narcotic agent - Gastro-esophageal reflux disease without esophagitis [email or web address]
== END ==
LOC: ED 22:41
DX: N39.0 Urinary tract infection, site not specified (principal); I10 Essential (primary) hypertension; E11.9 Type 2 diabetes mellitus without complications; K21.9 Gastro-esophageal reflux disease without esophagitis; Z88.5 Allergy status to narcotic agent; Z88.8 Allergy status to other drugs, medicaments and biological substances; Z79.899 Other long term (current) drug therapy
CPT/HCPCS: 51702; 51798; 81001; 99283-25

== ENCOUNTER 2022-10-15 13:01 | Emergency (ER) | payer MEDICARE ==
[~2022-10-15] VITALS: Ht 170.2 cm; Wt 98.0 kg
[2022-10-15] MEDS ORDERED: ALLOPURINOL100 MG PO (13:58)
== END 2022-10-15 15:07 | disposition home or self-care (01) ==
LOC: ED 13:01
DX: H11.31 Conjunctival hemorrhage, right eye (principal); I10 Essential (primary) hypertension; E11.9 Type 2 diabetes mellitus without complications; K21.9 Gastro-esophageal reflux disease without esophagitis; Z88.5 Allergy status to narcotic agent; Z88.8 Allergy status to other drugs, medicaments and biological substances; Z79.899 Other long term (current) drug therapy; Z79.4 Long term (current) use of insulin
CPT/HCPCS: 99283

== ENCOUNTER 2023-04-13 10:35 | Day surgery (SDC) | payer MEDICARE ==
[~2023-04-13] VITALS: Ht 170.2 cm; Wt 98.6 kg
[~2023-04-13 10:35] MED LIST changes: +ALLOPURINOL100 MG PO; +LISINOPRIL10 MG PO; +OZEMPIC0.25 MG/01
[2023-04-13 10:51] VITALS: BP 121/76
--- NOTE | 2023-04-13 14:22 | NUR ---
04/13/[address] IS AT THE BEDSIDE, SPEAKING WITH PATIENT. HIS QUESTIONS ARE ANSWERED. OXYGEN SATURATION 100% ON 3L VIA NC. OXYGEN IS REMOVED AT THIS TIME. PATIENT REPOSITIONS HIMSELF TO HIS BACK.
[2023-04-13 14:41] VITALS: BP 124/75
--- NOTE | 2023-04-13 18:01 | OR ---
[facility] [address] [facility] [place], [place] [address] Signed DATE OF OPERATION: 04/13/2023 SURGEON: Marjorie Dorsey MD PREOPERATIVE DIAGNOSIS: Positive Cologuard test. POSTOPERATIVE DIAGNOSIS: Small polyps x5 . PROCEDURE: Total colonoscopy to cecum with cold morcellation polypectomy x1 and cold snare polypectomy x1. 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 He underwent Cologuard testing, which was found to be positive. He has no symptoms of bleeding, diarrhea or constipation. He is admitted to undergo colonoscopy. He understands the risk of bleeding, infection, and perforation. FINDINGS: The prep was adequate. Complete colonoscopy was undertaken to the cecum without question. He had five polyps in total, one in the ascending colon, one in the sigmoid, two in the mid sigmoid and one in the rectum. All excised completely. DESCRIPTION OF PROCEDURE: The patient was brought to the endoscopy suite and placed in the lateral decubitus position, given intravenous sedation with propofol infusional technique. Digital rectal examination was normal. An Olympus video colonoscope was passed in the rectum and manipulated throughout the colon ultimately intubating the cecum itself. The ileocecal valve and appendiceal orifice were normal. The scope was withdrawn. In the mid ascending colon, there was a small adenomatous appearing polyp, this was excised with cold morcellation technique without problem. The scope was further withdrawn showing no other abnormality until the proximal sigmoid colon where a small polyp was noted, this was excised with cold morcellation technique. Further withdrawal to mid sigmoid showed a somewhat larger Electronically Signed By: MARJORIE DORSEY MD 04/13/23 1801 PATIENT NAME: JORDON JACOBSON OPERATIVE REPORT DATE OF : 46 REPORT #: [id number] PHYSICIAN: MARJORIE DORSEY MD PCP: MARIAJOSE WINCHESTER PAC REPORT IS CONFIDENTIAL AND NOT TO BE RELEASED WITHOUT AUTHORIZATION [facility] [address] [place], [place] [address] Signed sessile polyp and a small sessile polyp nearby. The larger was excised with cold snare technique. The smaller with cold morcellation technique. Further withdrawal showed a small adenomatous appearing rectum in the proximal rectum. This was excised with cold morcellation technique. Retroflexed view was undertaken, which was normal. Scope was removed and the patient was taken to the recovery room in good condition. CONCLUDING DIAGNOSIS: Small polyps x5 in total, none worrisome for malignancy. PLAN: Recommend repeat colonoscopy in three years, sooner if symptoms should develop. He will return to the ongoing care of JEFF Roy. MD JULEE Hurst/JENNIE /[id number] cc: JEFF Roy Copies: ~ Electronically Signed By: MARJORIE DORSEY MD 04/13/23 1801 PATIENT NAME: JORDON JACOBSON OPERATIVE REPORT DATE OF : 46 REPORT #: [id number] PHYSICIAN: MARJORIE DORSEY MD PCP: MARIAJOSE WINCHESTER PAC REPORT IS CONFIDENTIAL AND NOT TO BE RELEASED WITHOUT AUTHORIZATION
--- NOTE | 2023-04-17 18:58 | PATH ---
[facility] [address] [facility] [place], [place] [address] Signed SPECIMEN(S): A SIGMOID POLYP SPECIMEN(S): B ASCENDING/RIGHT COLON POLYP SPECIMEN(S): C COLON POLYP AT 20 CM SPECIMEN(S): D COLON POLYP AT 10 CM SPECIMEN SOURCE: A. SIGMOID POLYP B. ASCENDING/RIGHT COLON POLYP C. COLON POLYP AT 20 CM D. COLON POLYP AT 10 CM CLINICAL HISTORY: Preop: Positive Cologuard, family history of colon cancer. Postop: Polyps x 5. FINAL PATHOLOGIC DIAGNOSIS: A. Sigmoid colon polyp, biopsy: - Hyperplastic polyp. - Negative for dysplasia and malignancy. B. Ascending/right colon polyp, biopsy: - Tubular adenoma; 1 of 3 pieces. - Negative for high-grade dysplasia and malignancy. - Unremarkable colonic mucosa; 2 of 3 pieces. C. Colon, polyp at 20 cm, biopsy: - Hyperplastic polyp; 3 of 3 pieces. - Negative for dysplasia and malignancy. D. Colon, polyp at 10 cm, biopsy: - Hyperplastic polyp; 4 of 4 pieces. - Negative for dysplasia and malignancy. SDL MICROSCOPIC EXAMINATION: Histologic sections of all submitted blocks are examined by light microscopy. These findings, together with the gross examination, support the pathologic diagnosis. SDL GROSS DESCRIPTION: A. The specimen, labeled and designated "Stone, sigmoid polyp," is received in formalin and consists of one diaz soft tissue fragment, 0.2 cm. Entirely submitted in (A1). B. The specimen, labeled and designated "Stone, ascending/right colon polyp," PATIENT NAME: JORDON JACOBSON PATHOLOGY DATE OF : 46 REPORT #: [id number] PHYSICIAN: MANASA LEZAMA PCP: MARIAJOSE WINCHESTER PAC REPORT IS CONFIDENTIAL AND NOT TO BE RELEASED WITHOUT AUTHORIZATION [facility] [address] [place], [place] [address] Signed is received in formalin and consists of three diaz soft tissue fragments, ranging from 0.3-0.4 cm. Entirely submitted in (B1). C. The specimen, labeled and designated "Stone, colon polyp at 20 cm," is received in formalin and consists of three diaz soft tissue fragments, ranging from 0.3-0.5 cm. Entirely submitted in (C1). D. The specimen, labeled and designated "Stone, colon polyp at 10 cm," is received in formalin and consists of four diaz soft tissue fragments, ranging from 0.2-0.4 cm. Entirely submitted in (D1). VB (under the direct supervision of a pathologist) The Gross Description was prepared using a voice recognition system. The report was reviewed for accuracy; however, sound-alike word errors, addition and/or deletions may occur. If there are any questions about this report, please contact Client Services. PERFORMING LABORATORY: Technical component was performed by [facility], [address] [place] [id number] (CLIA# [id number]). Professional interpretation was performed by [employer] [facility] Pathology [facility], [address] [place] [id number] (CLIA#: [id number]). Diagnostician: Aster Harding MD Pathologist Electronically Signed 04/17/2023 Copies: ~ PATIENT NAME: JORDON JACOBSON PATHOLOGY DATE OF : 46 REPORT #: [id number] PHYSICIAN: MANASA LEZAMA PCP: MARIAJOSE WINCHESTER PAC REPORT IS CONFIDENTIAL AND NOT TO BE RELEASED WITHOUT AUTHORIZATION
== END 2023-04-13 14:47 | disposition home or self-care (01) ==
LOC: OPS 10:35 → DS 10:35 → OPS 12:00
PROVIDERS: ATTEND Surgery
PROC: 0DBN8ZZ Excision of Sigmoid Colon, Via Natural or Artificial Opening Endoscopic (ICD-10-PCS; 2023-04-13)
PROC: 0DBP8ZZ Excision of Rectum, Via Natural or Artificial Opening Endoscopic (ICD-10-PCS; 2023-04-13)
PROC: 0DBK8ZZ Excision of Ascending Colon, Via Natural or Artificial Opening Endoscopic (ICD-10-PCS; principal; 2023-04-13 12:15)
DX: D12.2 Benign neoplasm of ascending colon (principal); K63.5 Polyp of colon; K62.1 Rectal polyp; K43.6 Other and unspecified ventral hernia with obstruction, without gangrene; D48.5 Neoplasm of uncertain behavior of skin; E11.9 Type 2 diabetes mellitus without complications; I10 Essential (primary) hypertension; G47.30 Sleep apnea, unspecified; Z88.5 Allergy status to narcotic agent; Z79.4 Long term (current) use of insulin; Z79.899 Other long term (current) drug therapy
CPT/HCPCS: 00811; J2704; J7121

== ENCOUNTER 2023-08-17 12:57 | Emergency (ER) | payer MEDICARE ==
[~2023-08-17] VITALS: Ht 170.2 cm; Wt 96.2 kg
[2023-08-17 13:08] VITALS: BP 153/68
== END 2023-08-17 14:00 | disposition home or self-care (01) ==
LOC: ED 12:57
DX: S63.632A Sprain of interphalangeal joint of right middle finger, initial encounter (principal); W22.8XXA Striking against or struck by other objects, initial encounter; I10 Essential (primary) hypertension; E11.9 Type 2 diabetes mellitus without complications; K21.9 Gastro-esophageal reflux disease without esophagitis; Z88.5 Allergy status to narcotic agent; Z88.8 Allergy status to other drugs, medicaments and biological substances; Z79.899 Other long term (current) drug therapy; Z79.4 Long term (current) use of insulin
CPT/HCPCS: 73140; 99283-25

== ENCOUNTER 2024-04-25 16:51 | Inpatient (IN) | payer MEDICARE ==
[~2024-04-25] VITALS: Ht 170.2 cm; Wt 94.9 kg
[~2024-04-25 16:51] MED LIST changes: -OZEMPIC0.25 MG/01; +OZEMPIC2 MG/0.75 SUB-Q
[2024-04-25] MEDS ORDERED: ondansetron HCL 4 MG/2 ML VIAL IV ONE (17:45)
[2024-04-25 17:47] LABS: BASOPHILS 0.5 % (0-2); EOSINOPHILS 1.6 % (0-6); HEMATOCRIT 46.3 % (35.0-50.0); HEMOGLOBIN 15.8 g/dL (12.0-18.0); LYMPHOCYTES 14.5 % (24-44); MCH 32.5 (27-36); MCHC 34.2 g/dl (30-36); MCV 94.9 fl (81-99); MONOCYTES 5.6 % (0-12); NEUTROPHILS 77.8 % (39-80); PLATELET COUNT 209 K/uL (140-440); RBC 4.88 M/ul (4.3-5.7); RDW 12.7 (10.5-15.0)
[2024-04-25 17:57] LABS: ALBUMIN 4.3 g/dL (3.4-5.0); ALBUMIN/GLOBULIN RATIO 1.34 (1.1-2.4); ANION GAP 17.3 (7-21); BILIRUBIN, TOTAL 0.4 ng/dL (0.2-1.0); BUN/CREATININE RATIO 15.25 (6.0-28.6); CREATININE, SERUM 1.77 mg/dL (0.70-1.30); POTASSIUM 4.3 mmol/L (3.5-5.1); PROTEIN, TOTAL 7.5 g/dL (6.4-8.2)
[2024-04-25] MEDS ORDERED: SODIUM CHLORIDE 0.9% 1,000 ML IV ONE (18:15)
[2024-04-25] MEDS ORDERED: fentaNYL citrate 100 MCG/2 ML VIAL IV PRN ×2 (18:15→20:15)
[2024-04-25] MEDS ORDERED: LIDOCAINE 2% VISCOUS 6 ML SYR TOP ONE ×2 (19:00)
[2024-04-25] MEDS ORDERED: FAMOTIDINE 20 MG/ 2 ML VIAL IV ONE (19:00)
[2024-04-25 20:07] LABS: BILIRUBIN, URINE NEGATIVE (negative); BLOOD/HGB, URINE NEGATIVE (Negative); KETONE, URINE NEGATIVE (Negative); LEUK ESTERASE, URINE NEGATIVE (negative); NITRITE, URINE NEGATIVE (negative)
[2024-04-25] MEDS ORDERED: ondansetron HCL 4 MG/2 ML VIAL IV PRN ×2 (20:15→22:00)
[2024-04-25] MEDS ORDERED: DEXTROSE 5% - NACL 0.45% 1,000 ML IV SCH (20:15)
--- NOTE | 2024-04-25 20:19 | NUR ---
PATIENT ARRIVED TO UNIT VIA WHEELCHAIR. TRANSFERED TO BED 1 PA STAND BY ASSIST. REPORT RECEIVED FROM ED RN. VSS. WEIGHT OBTAINED. IV SITE FLUSHED AND PATENT. NGT CONNECTED TO INT. SUCTIONING. DRAINING BROWN/GREEN FLUID. PATIENT C/O NAUSEA. MD CONTACTED VIA PHONE. NEW ORDERS RECEIVED AND VERIFIED VIA VERBAL READ BACK. PRN MEDICATIONS GIVEN FOR NAUSEA SEE MAR. PATIENT RESTING IN BED, CALL LIGHT WITHIN REACH.
[2024-04-25 20:24] VITALS: BP 155/88
[2024-04-25] MEDS ORDERED: ACETAMINOPHEN 1,000 MG/100 ML VIAL IV PRN (20:45)
[2024-04-25] MEDS ORDERED: droPERidol 5 MG/2 ML VIAL IV PRN ×2 (20:45→22:15)
--- NOTE | 2024-04-25 21:53 | NUR ---
PATIENT C/O PAIN. PRN OFIRMEV GIVEN. SEE MAR. NO FURTHER NEEDS AT THIS TIME. CALL LIGHT WITHIN REACH.
[2024-04-25] MEDS ORDERED: DEXTROSE 5% - LACTATED RINGERS 1,000 ML IV SCH (22:00)
[2024-04-25] MEDS ORDERED: KETOROLAC TROMETHAMINE 15 MG/ML VIAL IV PRN (22:00)
[2024-04-25] MEDS ORDERED: FAMOTIDINE 20 MG/ 2 ML VIAL IV SCH ×2 (22:00→22:06)
[2024-04-25] MEDS ORDERED: HEParin SOD (PORCINE) 5,000 UNIT/0.5 ML SYR SUB-Q SCH (22:06)
--- NOTE | 2024-04-25 22:43 | NUR ---
PATIENT RESTING IN BED. LUNGS SOUNDS CTA. BOWEL TONES ACTIVE X 4 QUADRANTS. REPORTS HIS PAIN IS A 4/10 AND DENIES ANY NAUSEA AT THIS TIME. ABD DISTENDED AND TENDER. NGT IN PLACE AND FUNCTIONING WNL. SCDS IN PLACE. SKIN INTACT NOTED SCAB TO LEFT FOREARM. POSITIVE CMS THROUGHOUT. IVF INFUSING WITH NO ISSUES OR CONCERNS. NO FURTHER NEEDS AT THIS TIME. CALL LIGHT WITHIN REACH.
[2024-04-26] VITALS (10 sets, daily range): BP systolic 137–151; BP diastolic 72–90
--- NOTE | 2024-04-26 00:36 | NUR ---
PATIENT C/O PAIN 05/11. PRN GIVEN SEE MAR. PATIENT DENIES NEED TO VOID AT THIS TIME. NO FURTHER NEEDS. CALL LIGHT WITHIN REACH.
[2024-04-26] MEDS ORDERED: IBLOOD GLUCOSE TEST STRIP 1 EA TEST VI SCH ×2 (02:45→17:00)
--- NOTE | 2024-04-26 02:45 | NUR ---
PATIENT RESTING IN BED. BLOOD SUGAR CHECKED 168 MG/DL. VSS. BOWEL TONES REMAIN ACTIVE X 4 QUDRANTS. ABD CONTINUES TO BE DISTENDED. PATIENT REPORTS HE IS FEELING "BETTER" PAIN LYNN. DENIES ANY NAUSEA AT THIS TIME. VSS. CALL LIGHT WITHIN REACH. NGT IN PLACE AND FUNCTIONING WNL. IVF INFUSING WITH NO ISSUES OR CONCERNS. URINAL EMPTIED. NO FURTHER NEEDS AT THIS TIME. CALL LIGHT WITHIN REACH.
--- NOTE | 2024-04-26 04:00 | NUR ---
PATIENT RESTING IN BED WITH EYES CLOSED. RESPIRATIONS EVEN AND UNLABORED. IVF INFUSING WITH NO ISSUES OR CONCERNS. CALL LIGHT WITHIN REACH.
[2024-04-26 05:14] LABS: BASOPHILS 0.3 % (0-2); EOSINOPHILS 1.4 % (0-6); HEMATOCRIT 44.2 % (35.0-50.0); HEMOGLOBIN 15.3 g/dL (12.0-18.0); LYMPHOCYTES 12.2 % (24-44); MCH 32.7 (27-36); MCHC 34.6 g/dl (30-36); MCV 94.4 fl (81-99); MONOCYTES 6.2 % (0-12); NEUTROPHILS 79.9 % (39-80); PLATELET COUNT 192 K/uL (140-440); RBC 4.68 M/ul (4.3-5.7); RDW 12.8 (10.5-15.0)
[2024-04-26 05:27] LABS: ANION GAP 14.7 (7-21); BUN/CREATININE RATIO 16.37 (6.0-28.6); CALCIUM 9.1 mg/dL (8.5-10.1); CREATININE, SERUM 1.71 mg/dL (0.70-1.30); POTASSIUM 4.7 mmol/L (3.5-5.1)
--- NOTE | 2024-04-26 07:33 | NUR ---
SBAR REPORT RECEIVED FROM CITLALI DURAN. DURING MORNING CBG CHECK WITH BRAD MAYES IN ROOM, PATIENT JORDON WAS NOTED TO BE AUDIBLY WRETCHING. 600 CC OF BROWN AND MALODOROUS CONTENTS IN EMESIS BAG. AN ADDITIONAL 600 IN NG CANISTER. JORDON STATES THAT HE HAS HAD SEVERAL SBO BUT THAT THIS IS THE "WORST". INAPSINE, PEPSID, COLD WASH CLOTHS, AND ALCOHOL PADS GIVEN
--- NOTE | 2024-04-26 08:56 | NUR ---
IMAGING CALLED TO HAVE NG TUBE ADVANCED. THIS RN DOWN TO IMAGING AND ADVANCED NG TUBE 6 CM.
[2024-04-26] MEDS ORDERED: FAMOTIDINE 20 MG/ 2 ML VIAL IV SCH (09:00)
--- NOTE | 2024-04-26 09:03 | NUR ---
PATIENT JORDON NOT ON UNIT SMALL BOWEL FOLLOW THROUGH.
--- NOTE | 2024-04-26 09:16 | NUR ---
PATIENT IS IN RADIOLOGY DEPARTMENT. THE KEY CARRIER WILL RETURN LATER THIS AFTERNOON TO DISCUSS THE DISCHARE PLAN
--- NOTE | 2024-04-26 10:09 | NUR ---
NG CLAMPED FOR SBO FOLLOW UP. ABDOMINAL PAIN/DISCOMFORT 04/10. ENDORSED RESTROOM NEEDS. SBA TO RESTROOM FOR LINE CARE NEURO- ALERT AND ORIENTED X4, PERRLA, MOVES ALL EXTREMITIES, INDEPENDENT REPOSITION, CONSTANT PAIN IN ABDOMEN CARDIAC- AFEBRILE, NO EDEMA NOTED, PALPABLE RADIAL AND PEDAL PULSES RESP- RA, CLEAR BREATH SOUNDS, O2 REMAINS ABOVE 94%, ABLE TO COUGH AND DEEP BREATH TO CLEAR AIRWAY GI/-NPO- ABDOMINAL DISTENTION, NORMOACTIVE BOWEL TONES IN BILATERAL UPPER QUADRANTS, HYPOACTIVE BOWEL TONES IN LOWER QUADRANTS , NG CLAMPED INT- NO ABNORMALITIES NOTED LDA- PATENT AND INTACT
--- NOTE | 2024-04-26 10:27 | NUR ---
IN TO ADMINISTER PRN PAIN MEDICATION FOR PT REPORTING PAIN 04/10 TO ABD. PT REPORTING HAVING 5 BM's. PT STATES "1 LARGE KIND OF SOFT/LIQUID AND 4 LIQUID ONES." IMAGING IN ROOM TO TAKE PT DOWN.
--- NOTE | 2024-04-26 12:00 | NUR ---
PATIENT JORDON ENDORSES TOLERABLE COMFORT THIS HOUR. HE IS UP TO THE BSC. PERIPHERAL IV NOTED TO BE LEAKING. DRESSING CHANGE PERFORMED. NO OTHER NEEDS ENDORSED OR IDENTIFIED AT THIS TIME
--- NOTE | 2024-04-26 12:57 | NUR ---
SPOUSE AT BEDSIDE. JORDON ENDORSES INCREASED COMFORT AT THIS TIME. PIV NOTED TO BE LEAKING AFTER DRESSING CHANGE. WILL REPLACE PER UNIT PARAMETERS
--- NOTE | 2024-04-26 13:40 | NUR ---
IN TO START NEW IV CURRENT IV IS LEAKING. NEW IV SUCCESSFUL ON FIRST ATTEMPT. OLD IV REMOVED WNL. PT LAYING IN BED AND RESPONDS WHEN ADDRESSED. PTs IN ROOM ON COUCH. BSC EMPTIED. 1350 WARM BLANKETS PROVIDED FOR . PTs IV FLUIDS RESUMED. PT AND PTs DENY ANY OTHER NEEDS AT THIS TIME. CALL LIGHT IN REACH.
[2024-04-26] MEDS ORDERED: FENOFIBRATE134 MG PO (13:56)
[2024-04-26] MEDS ORDERED: LOSARTAN POTASS50 MG PO (13:59)
[2024-04-26] MEDS ORDERED: TAMSULOSIN HCL0.4 MG PO (14:00)
[2024-04-26] MEDS ORDERED: NOVOLOG FL100 UNIT/1 SUB-Q (14:01)
--- NOTE | 2024-04-26 15:17 | NUR ---
JORDON IS RESTING IN BED WITH EYES CLOSED. NO NEEDS ENDORSED AT THIS TIME
--- NOTE | 2024-04-26 15:47 | NUR ---
THE PATIENT HAS BEEN UP AND DOWN IN THE BATHROM OR SLEEPING MOST OF THE DAY. WILL TRY TO DO THE THE DISCHARGE ASSESSMENT WHEN WHEN TIME ALLOWS.
--- NOTE | 2024-04-26 16:03 | NUR ---
IN TO ROUND ON PT. PT LAYING IN BED SEMI-FOWELERS. PT RESPONDS WHEN ADDRESSED. BSC EMPTIED. IV CONTINUES TO INFUSE WNL. PT DENIES ANY OTHER NEEDS AT THIS TIME. CALL LIGHT IN REACH.
[2024-04-26] MEDS ORDERED: DEXTROSE 5% 1,000 ML IV PRN (16:45)
[2024-04-26] MEDS ORDERED: GLUCAGON,HUMAN RECOMBINANT 1 MG/ML VIAL SUB-Q PRN (16:45)
[2024-04-26] MEDS ORDERED: IBLOOD GLUCOSE TEST STRIP 1 EA TEST XX PRN (16:45)
[2024-04-26] MEDS ORDERED: DEXTROSE 50% 50 ML SYR IV PRN ×2 (16:45)
[2024-04-26] MEDS ORDERED: INSULIN LISPRO 100 UNIT/ML ML SUB-Q SCH (17:00)
--- NOTE | 2024-04-26 17:07 | NUR ---
ROUNDED WITH MD DORSEY. SEE EMAR AND CHART FOR NEW ORDERS. JELLO, APPLESAUCE, AND H20 GIVEN. JORDON DENIES ANY MORE NEEDS OR DESIRES AT THIS TIME. INDEPENDENT TO RESTROOM, SALINE LOCKED
--- NOTE | 2024-04-26 17:42 | NUR ---
1 UNIT OF INSULIN GIVEN PER SLIDING SCALE. JORDON ATE MOST OF HIS DINNER MEAL. NO N/V NOTED.
--- NOTE | 2024-04-26 19:43 | NUR ---
REPORT RECEIVED FROM DAY RN. PATIENT RESTING IN RECLINER. DENIES ANY NEEDS AT THIS TIME. PATIENT REQUESTED TO WALK THE GALVAN. PATIENT UP WALKING THE HALLS INDEPENDENTLY WITH NO ISSUES OR CONCERNS. STEADY GAIT NOTED.
--- NOTE | 2024-04-26 19:48 | HP ---
[facility] [address] [place], [place] [address] Signed ADMISSION DATE: 04/25/2024 REASON FOR ADMISSION: Recurrent small bowel obstruction. 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 I have performed colonoscopy on him and admitted to the hospital for small bowel obstruction in the past. He presents to the emergency room this evening, was evaluated by Dr. Weiss with findings consistent with acute small bowel obstruction. He was able to the eat yesterday reasonably well, but this morning began having vague abdominal pain. By later in the day, he had nausea and vomiting, abdominal pain, and distention. This was very consistent with prior episodes of small bowel obstruction. It is notable that in [place], [place], in December of this year, he had similar findings, was admitted to the hospital and just prior to a planned for laparotomy for lysis of adhesions or other intervention, his bowel obstruction cleared up. The patient notes that this episode is "different." By that he means he feels quite a bit less well than on other occasions. He is admitted having been undergone nasogastric tube intubation. Fluid resuscitation and is admitted for further evaluation and care. PAST MEDICAL HISTORY: Quite notable for diabetes mellitus. He does not have hyperglycemia at this time. He additionally has hypertension, history of PSVT, history of diverticulitis, at least seven small bowel obstruction episodes, reflux and history of nephrolithiasis. He denies smoking or alcohol use. PAST SURGICAL HISTORY: Includes umbilical hernia repair in the past, abdominal laparotomy and lysis of adhesions, prostate biopsy and stone removal. Has allergies to hydrocodone, hydromorphone, oxycodone, an GABBI inhibitors and morphine. He has been benefit by fentanyl upon admission at this time. CURRENT MEDICINES: Include allopurinol, fenofibrate, multivitamin, , Zetia, losartan, diltiazem, Electronically Signed By: MARJORIE DORSEY MD 04/26/241947 PATIENT NAME: JORDON JACOBSON HISTORY AND PHYSICAL DATE OF : 46 REPORT #: [id number] PHYSICIAN: MARJORIE DORSEY MD PCP: MARIAJOSE WINCHESTER PAC REPORT IS CONFIDENTIAL AND NOT TO BE RELEASED WITHOUT AUTHORIZATION [facility] [address] [place], [place] [address] Signed simvastatin, semaglutide/Ozempic, and lisinopril. SOCIAL HISTORY: He is . His , Amirah is a retired nurse as well. 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 He lives now in [place]. REVIEW OF SYSTEMS: He denies any shortness of breath or chest pain. His abdominal pain is improved since nasogastric tube intubation and intravenous medication administration. He has had nausea despite functional nasogastric tube. A chest x-ray has confirmed a nasogastric tube to be in a reasonable position. PHYSICAL EXAMINATION: GENERAL: Pleasant white man who is somewhat subdued. He does not show systemic toxicity. VITAL SIGNS: Height is 5 feet and 7 inches, weight 94.9 kg, BMI is 32.8. HEENT: Trachea is midline. Mucous membranes are slightly dry. CHEST: Clear. HEART: Regular without murmur. ABDOMEN: Somewhat distended and mildly tender. There is no focal tenderness. There is a relatively small midline incision in the region of the umbilicus. LABORATORY STUDIES: Show white count 11.4, hematocrit 46.3, platelets 209,000. Electrolytes normal. Creatinine elevated 1.77 kg. Liver enzymes appear to be normal. I reviewed the CT scan and as well as the report attempted to it showing mid abdominal small bowel loop dilation with mild hazy stranding, small volume of fluid. The stomach does appear to be rather distended with fluid on my examination and this of course prior to nasogastric tube placement. There were multiple nonobstructing right intrarenal calculi and hepatic steatosis. ASSESSMENT: The patient clearly has a small bowel obstruction from a clinical standpoint and this is certainly recurrent multiple times. IV fluids, intravenous antibiotics, nasogastric tube decompression and consideration for small bowel follow-through tomorrow in the morning would be appropriate. If he has persistent obstruction, an operative intervention would be needed. The patient is quite inclined to operative intervention as he has had recurrent bouts of bowel obstruction over time and although he has succeeded in their resolution with the usual conservative measures. He is somewhat in this regard and wishes a Electronically Signed By: MARJORIE DORSEY MD 04/26/241947 PATIENT NAME: JORDON JACOBSON HISTORY AND PHYSICAL DATE OF : 46 REPORT #: [id number] PHYSICIAN: MARJORIE DORSEY MD PCP: MARIAJOSE WINCHESTER PAC REPORT IS CONFIDENTIAL AND NOT TO BE RELEASED WITHOUT AUTHORIZATION [address] [address] Signed remedy to be undertaken if possible and appropriate. MD JULEE Hurst/LILIYAL /[id number] cc: Marcus Weiss MD [facility] Mariajose Winchester PA-C Copies: ~ Electronically Signed By: MARJORIE DORSEY MD 04/26/24 1948 PATIENT NAME: JORDON JACOBSON HISTORY AND PHYSICAL DATE OF : 46 REPORT #: [id number] PHYSICIAN: MARJORIE DORSEY MD PCP: MARIAJOSE WINCHESTER PAC REPORT IS CONFIDENTIAL AND NOT TO BE RELEASED WITHOUT AUTHORIZATION
--- NOTE | 2024-04-26 21:10 | NUR ---
SERVICE ASSISTANT OBTAINED VITALS AND I&O. PT GIVEN FRESH ICEWATER. PT STATES NO FURTHER NEEDS AT THIS TIME. CALL LIGHT WITHIN REACH.
--- NOTE | 2024-04-26 21:28 | NUR ---
FIELD CROP GROWER OBTAINED PT BLOOD SUGAR. BLOOD SUGAR 117. RN NOTIFIED. PT STATES NO FURTHER NEEDS AT THIS TIME. CALL LIGHT WITHIN REACH.
--- NOTE | 2024-04-26 21:39 | NUR ---
PATIENT RESTING IN BED. LUNGS CTA, BOWEL TONES ACTIVE X 4 QUADRANTS. PATIENT REPORTS HE IS PASSING GAS AND DENIES ANY NAUSEA AT THIS TIME. TOLLERATING CLEAR LIQUID DIET WELL AT THIS TIME. DENIES ANY PAIN OR DISCOMFORT AT THIS TIME. NO FURTHER NEEDS. CALL LIGHT WITHIN REACH.
--- NOTE | 2024-04-26 23:55 | NUR ---
PATIENT RESTING IN BED WITH EYES CLOSED. RESPIRATIONS EVEN AND UNLABORED. CALL LIGHT WITHIN REACH.
--- NOTE | 2024-04-27 02:24 | NUR ---
PATIENT RESTING IN BED WITH EYES CLOSED. RESPIRATIONS EVEN AND UNLABORED. CALL LIGHT WITHIN REACH.
[2024-04-27 05:00] VITALS: BP 138/78
--- NOTE | 2024-04-27 05:01 | NUR ---
PATIENT RESTING IN BED. VSS. PATIENT REPORTS PASSING GAS. DENIES ANY NAUSEA. DENIES ANY PAIN. BOWEL TONES ACTIVE X 4 QUADRANTS. CALL LIGHT WITHIN REACH.
--- NOTE | 2024-04-27 07:42 | NUR ---
RECEIVED REPORT FROM CITLALI DURAN. ASSUMING CARE OF PT WITH CITLALI BATES.
--- NOTE | 2024-04-27 07:46 | NUR ---
SBAR REPORT RECEIVED FROM CITLALI DURAN. ALL EVENTS OF THE EVENING WERE DISCUSSED AND PLAN OF CARE REVIEWED. PATIENT WAS NOTED TO BE INDEPENDENT IN ROOM AND IS LOOKING FORWARD TO POSSIBLY DISCHARGING HOME TODAY
--- NOTE | 2024-04-27 08:17 | NUR ---
mmed rec complete.
--- NOTE | 2024-04-27 10:47 | NUR ---
NEURO- ALERT AND ORIENTED X 4, MOVES ALL EXTRREMITIES, FULL SENSATION, PERRL, DENIES PAIN, PLEASANT, LOOKING FORWARD TO DISCHARGE CARDIAC- AFEBRILE, NO EDEMA NOTED, PALPABLE PULSES, CAP REFILL LESS THAN 3 RESP- RA, CLEAR BREATH SOUNDS IN ALL QUADRANTS GI/- NORMOACTIVE BOWEL TONES IN ALL 4 QUADRANTS, TOLERATING CLEAR LIQUIDS WELL, BOWEL MOVEMENT AND VOIDS IN BATHROOM, CBG ACHS INT- SEE ASSESSMENT LA PIV/ FLUSHES AND ASPIRATES WELL, NON-TENDER
[2024-04-27 11:06] VITALS: BP 131/77
--- NOTE | 2024-04-27 12:18 | NUR ---
DC AT 1215- PATIENT WAS ABLE TO DRESS HIMSELF INDEPENDENTLY AND AMBULATE WELL.
--- NOTE | 2024-04-29 09:38 | NUR ---
UR CLINICAL REVIEW: [facility]- MET INPT FOR INTESTINAL OBSTRUCTION MEDICARE INPT 04/25/24 @ 1900 NO AUTH REQUIRED PER MEDICARE [facility] [place] [facility].
--- NOTE | 2024-04-29 15:32 | DS ---
[facility] [address] [place], [place] [address] Signed ADMISSION DATE: 04/25/2024 DISCHARGE DATE: 04/27/2024 REASON FOR ADMISSION: Recurrent small-bowel obstruction. 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 He presented to the emergency room and evaluated by Dr. Weiss with findings consistent with a recurrent acute small-bowel obstruction. The patient has undergone laparoscopy and lysis of adhesion in the past for a small-bowel obstruction. He has had at least seven small bowel obstruction episodes in the past. Indeed, his last small-bowel obstruction was in December of this year in [place], [place] for which laparotomy was planned, but resolution occurred before operation could be undertaken. He is upset on this occasion was "different" by that he means he felt less well than on other occasions. He had nausea, vomiting, abdominal distention and a CT scan performed in the emergency room confirmed the probability of small-bowel obstruction without sign of hernia or other issue. Incidentally noted was an exophytic lesion arising from the posterior cortex of the right superior pole of the kidney, uncertain if new. The patient was admitted for further evaluation and care. PERTINENT PHYSICAL EXAM: GENERAL: Pleasant white man who looks to be in only mild discomfort. HEENT: Nasogastric tube was draining bilious fluid. Trachea is midline. CHEST: Clear. HEART: Regular without murmur. ABDOMEN: Somewhat distended and mildly tender. A minimal incision in the region of the umbilicus was noted from prior laparoscopy. LABORATORY STUDIES: Showed a white count 11.4, hematocrit 46.3, platelets 209,000. Electrolytes normal. Creatinine elevated 1.77 kg. Liver enzymes normal. HOSPITAL COURSE: He was maintained with nasogastric tube decompression, IV fluid resuscitation and parental pain medication. The following day, a small-bowel follow-through was undertaken, which showed complete passage of contrast through the GI tract into the colon. The nasogastric tube was removed and he was advanced to a clear liquid diet and ultimately to a regular diet, which he tolerated well. Management of his diabetes Electronically Signed By: MARJORIE DORSEY MD 04/29/24 1532 PATIENT NAME: JORDON JACOBSON DISCHARGE SUMMARY DATE OF : 46 REPORT #: [id number] PHYSICIAN: MARJORIE DORSEY MD PCP: MARIAJOSE WINCHESTER PAC REPORT IS CONFIDENTIAL AND NOT TO BE RELEASED WITHOUT AUTHORIZATION [address] [address] Signed includes a sliding scale for insulin. He is discharged home now having no complaints of his bowel obstruction and clinical resolution of that. PLAN: He is well aware of the kidney lesion and I have asked him to follow up with his primary care provider, PILO Roy for further monitoring of this. A referral to urologist may at one point be appropriate. It is notable he has family history of kidney cancer in a brother and a sister. DISCHARGE MEDICATIONS: Will include those that he was admitted with. These includes: 1. Pantoprazole 40 mg p.o. daily. 2. Lantus insulin 65 units subcutaneous at bedtime. 3. Multivitamin with calcium daily. 4. Zetia 10 mg p.o. HS. 5. Diltiazem Extended-Release 120 mg p.o. HS. 6. Simvastatin 40 mg p.o. HS. 7. Herbal complex vitamin 1 p.o. q.week. 8. Allopurinol 100 mg p.o. b.i.d. 9. Semaglutide (Ozempic) 2 mg subcutaneously weekly. 10. Lisinopril 10 mg p.o. daily. 11. Fenofibrate 135 mg daily. 12. Losartan 50 mg p.o. daily. 13. Insulin NovoLog FlexPen 60 units subcutaneously every day as suggested based on blood glucose. DISCHARGE DIAGNOSES: 1. Recurrent small-bowel obstruction. 2. Small exophytic lesion right superior kidney pole to be followed up by primary provider. 3. History of recurrent small bowel obstruction on one occasion laparoscopy with apparent lysis of adhesion. 4. Diabetes mellitus. 5. History of nephrolithiasis. 6. History of diverticular disease. Marjorie Dorsey MD Electronically Signed By: MARJORIE DORSEY MD 04/29/24 1532 PATIENT NAME: JORDON JACOBSON DISCHARGE SUMMARY DATE OF : 46 REPORT #: [id number] PHYSICIAN: MARJORIE DORSEY MD PCP: MARIAJOSE WINCHESTER PAC REPORT IS CONFIDENTIAL AND NOT TO BE RELEASED WITHOUT AUTHORIZATION [address] [address] Signed JULEE/JENNIE /[id number] cc: Mariajose Winchester PA-C Copies: ~ Electronically Signed By: MARJORIE DORSEY MD 04/29/24 1532 PATIENT NAME: JORDON JACOBSON DISCHARGE SUMMARY DATE OF : 46 REPORT #: [id number] PHYSICIAN: MARJORIE DORSEY MD PCP: MARIAJOSE WINCHESTER PAC REPORT IS CONFIDENTIAL AND NOT TO BE RELEASED WITHOUT AUTHORIZATION
== END 2024-04-27 12:09 | disposition home or self-care (01) | DRG 390 ==
LOC: ED 16:51 → MS 19:01
PROVIDERS: Emergency Medicine; ADMIT Surgery; ATTEND Surgery
PROC: 0D9670Z Drainage of Stomach with Drainage Device, Via Natural or Artificial Opening (ICD-10-PCS; principal; 2024-04-25)
DX: K56.609 Unspecified intestinal obstruction, unspecified as to partial versus complete obstruction (principal); E11.9 Type 2 diabetes mellitus without complications; I10 Essential (primary) hypertension; K21.9 Gastro-esophageal reflux disease without esophagitis; Z87.19 Personal history of other diseases of the digestive system; Z87.442 Personal history of urinary calculi; Z98.890 Other specified postprocedural states; Z88.5 Allergy status to narcotic agent; Z88.8 Allergy status to other drugs, medicaments and biological substances; Z79.4 Long term (current) use of insulin; Z79.899 Other long term (current) drug therapy
CPT/HCPCS: 36415; 71045; 74177; 74250; 80048; 80053; 81003; 83690; 85025; J0131; J1644; J1790; J1815; J1885; J2405; J3010; J7030; J7042; J7121; Q9967